=== PATIENT | female | born 1960 | race Caucasian/White ===

== ENCOUNTER → 2020-02-11 11:28 | Outpatient (CLI) | payer OTHER, SELFPAY ==
[2020-01-23 08:26] VITALS: BMI 19.5
--- NOTE | 2020-02-11 11:29 | BI_ITS ---
MAMMOGRAPHY - BILATERAL SCREENING REASON FOR EXAM: Female, 59 years old. Routine annual screening examination. PERTINENT HISTORY: Non-contributory. TECHNIQUE: Digital bilateral breast rosa (3D mammographic acquisition) in the CC and MLO projections. 2-D mediolateral oblique (MLO) and craniocaudad (CC) views of both breasts were obtained. CAD: Full Field Digital Mammography with Computer Added Detection was performed. COMPARISON: Comparison is made with prior outside examination dated December 09, 2018. FINDINGS: Breast Composition: The breasts are heterogeneously dense, which may obscure small masses. There are no dominant masses or suspicious calcifications. No other significant abnormalities are identified. There has been no significant change since the prior study. BI/SCREEN MAMM (CAD) W/ROSA BILAT IMPRESSION: Stable bilateral screening mammogram. Yearly follow-up mammogram recommended. (A) ASSESSMENT CATEGORY: BIRADS Category 1: Negative. A letter regarding these results will be sent to the patient by the facility within 30 days. Approximately 10% of breast cancers are not detected by mammography. A normal mammogram should not delay biopsy of a clinically suspicious abnormality. [id number] Electronically Signed: Tre Reynolds, at 13:19 EDT , Service support ,
== END ==
PROVIDERS: PCP Internal Medicine; Referring Provider Internal Medicine; Visit Provider Internal Medicine
DX: Z12.31 Encounter for screening mammogram for malignant neoplasm of breast (principal)
CPT/HCPCS: 77063; 77067

== ENCOUNTER → 2020-05-28 10:52 | Outpatient (CLI) | payer OTHER, SELFPAY ==
[2020-05-28 09:44] VITALS: BMI 19.5
--- NOTE | 2020-05-28 10:54 | RAD_ITS ---
HISTORY: cervicalgia, headaches several months ADDITIONAL HISTORY: None provided. EXAMINATION/TECHNIQUE: XR Spine Cervical 4 or 5 Views Number of images including paperwork: 5 COMPARISON: None FINDINGS: VERTEBRAE: No acute fracture. VERTEBRAL ALIGNMENT: No traumatic subluxation. DISKS AND JOINTS: Moderate discogenic degenerative changes at C4-5 with mild to moderate bilateral foraminal stenosis, greater on the right. Facet arthropathy and uncovertebral degenerative changes. SOFT TISSUES: Unremarkable paraspinous soft tissues. RAD/Cerv Spine 4 or 5 Views IMPRESSION: 1. No acute findings. 2. Cervical spondylosis. at 0142 Reported and signed by: Jayna Kilgore MD Electronically Signed: Jayna Kilgore MD at 1:42 EDT Tel , Service support ,
== END ==
PROVIDERS: PCP Internal Medicine; Referring Provider Nurse Practitioner Family; Visit Provider Nurse Practitioner Family
DX: M54.2 Cervicalgia (principal); R51 Headache
CPT/HCPCS: 72050

== ENCOUNTER → 2021-02-09 08:54 | Outpatient (CLI) | payer OTHER, SELFPAY ==
[2021-02-09 08:27] VITALS: BMI 19.8
[2021-02-09 12:10] LABS: Absolute Lymphocyte Count 1.45 X10^3/uL (0.83-4.51); Absolute Neutrophil Count 1.9 X10^3/uL (2.0-7.7); Basophil# 0.05 X10^3/uL; Basophil% 1.2 % (0-1); Eosinophil# 0.29 X10^3/uL; Hematocrit 40.4 % (37-47); Hemoglobin 13.5 g/dL (12.0-15.0); Lymphocyte # 1.45 X10^3/ul (0.83-4.51); Lymphocyte % 35.1 % (19-41); Mean Corp Hgb Conc 33.4 g/dL (32-36); Mean Corpuscular Hgb 33.9 pg (27.0-32.0); Mean Corpuscular Volume 101.5 fL (81-99); Mean Platelet Vol. 10.6 fl (6.2-12.0); Monocyte# 0.48 X10^3/uL; Monocyte% 11.6 % (0-10); NRBC Flagged by Analyzer 0 % (0-5); Neutrophil # 1.85 X10^3/uL (2.7-7.7); Neutrophil % 44.9 % (47-70); Platelet Count 250 K/mm3 (150-450); RBC Distribution Width CV 11.9 % (11.6-14.6); RBC Distribution Width SD 44.7 fl (35.1-43.9); Red Blood Count 3.98 M/mm3 (4.2-5.4); White Blood Count 4.1 K/mm3 (4.4-11.0)
[2021-02-09 12:59] LABS: ALB/GLOB Ratio 1.4 RATIO (0.9-2.4); AST(SGOT) 19 U/L (15-37); Alanine Aminotransfer ALT/SGPT 27 U/L (13-56); Albumin, Serum 4.2 g/dL (3.2-5.0); Alkaline Phosphatase 59 U/L (45-117); Anion Gap 6 (5-15); BUN 14 mg/dL (7-18); BUN/Creat Ratio 15.3 RATIO (10-20); Calcium,Total 9.2 mg/dL (8.5-10.1); Chloride 103 mmol/L (98-107); Creatinine, Serum 0.91 mg/dL (0.55-1.02); EST Glomerular Filtration Rate 67 mL/min (>60); Est Glom Filt Rate - Afr Amer 81 mL/min (>60); Globulin 3.1 g/dL (2.2-4.2); Glucose 88 mg/dL (74-106); Magnesium 2.4 mg/dL (1.6-2.6); Potassium 3.8 mmol/L (3.5-5.1); Protein, Total 7.3 g/dL (6.4-8.2); Sodium Level 138 mmol/L (136-145)
[2021-02-10 12:07] LABS: Vitamin B12 454 pg/mL (211-911)
== END ==
PROVIDERS: PCP Internal Medicine; Referring Provider Nurse Practitioner Family; Visit Provider Nurse Practitioner Family
DX: R00.2 Palpitations (principal); D53.9 Nutritional anemia, unspecified
CPT/HCPCS: 36415; 80053; 82607; 82746; 83735; 84443; 85025

== ENCOUNTER → 2021-04-21 | Outpatient (CLI) | payer OTHER, SELFPAY ==
[2021-04-21 15:01] VITALS: BMI 19.8
[2021-04-21 15:30] LABS: Bacteria 0 SEEN /hpf (None Seen); Mucous, Urine 0 SEEN /hpf (<or=2+); Red Blood Cells-Urine 0 SEEN /hpf (0-5); Squamous Epithelial Cells - UA 0 SEEN /hpf (5-10); White Blood Cells 0 SEEN /hpf (0-5)
[2021-04-21 16:36] LABS: Color, Urine Yellow (Yellow); Glucose, Dipstick Normal (Normal); Ketone-Dipstick Negative (Negative); Leukocyte Esterase-Dipstick Negative /ul (Negative); Nitrite-Dipstick Negative (Negative); Occult Blood-Urine Negative /ul (Negative); Protein-Dipstick Negative (Negative); Urine Bilirubin Dipstick Negative (Negative); Urine Clarity Clear (Clear); Urine Urobilinogen Normal (Normal); Urine pH 6.5 (5.0 - 8.0)
== END | disposition home or self-care (01) ==
LOC: LABSPEC 15:29
PROVIDERS: PCP Internal Medicine; Referring Provider Physician Assistant; Visit Provider Physician Assistant
DX: R31.9 Hematuria, unspecified (principal)
CPT/HCPCS: 81001; 87086

== ENCOUNTER → 2021-04-26 | Outpatient (CLI) | payer OTHER, SELFPAY ==
[2021-04-21 15:01] VITALS: BMI 19.8
--- NOTE | 2021-04-26 | CYSPIN_PTH ---
PATIENT: HENNY BROTHERS LOC: [facility] U#:[id number] AGE/SX: 60/F ROOM: RE04/26/[address]: Dr. Denisse Shaikh MD : 1960 BED: DIS: 04/26/2021 SPEC #: [id number] RECD: 04/26/21 14:00 STATUS: LEONARDO REJaron #: [id number] AIDEE: 04/26/21 00:[address]: Denisse Shaikh DEPT: CYTOLOGY RECD BY: Surinder Travis ENTERED: 04/27/21 11:04 SP TYPE: CYSPIN FL OTHR DR: Dr. Miri Ribeiro MD Tissues: Urine Procedures: Pap Stain (control) Special Stain Group II Cytospin Fluid HEADER OPERATION: Not noted PRE-OP DIAGNOSIS: Gross hematuria TISSUE SUBMITTED: Urine for cytology DIAGNOSIS CYTOLOGY Urine for cytology (cytospin): Negative for malignant cells. AM:pauline 04/27/2021 CYTOLOGY STUDY Slides are reviewed. CYTOLOGY GROSS Received is 60 ml of hazy yellow fluid labeled with the patient's name and and designated per the requisition as urine. Submitted for cytology preparation. / pauline 04/27/2021 TC:5 CPT: 43838
[2021-04-26 17:03] LABS: Cytology, Body Fluid / CSF SEE PATHOLOGY REPORT
== END | disposition home or self-care (01) ==
LOC: LABSPEC 15:35
PROVIDERS: PCP Internal Medicine; Visit Provider Urology
DX: R31.0 Gross hematuria (principal)
CPT/HCPCS: 88108; 88313

== ENCOUNTER → 2021-04-28 11:06 | Outpatient (CLI) | payer OTHER, SELFPAY ==
[2021-04-21 15:01] VITALS: BMI 19.8
[2021-04-28 12:14] LABS: Anion Gap 6 (5-15); BUN 12 mg/dL (7-18); Calcium,Total 9.6 mg/dL (8.5-10.1); Chloride 103 mmol/L (98-107); EST Glomerular Filtration Rate 78 mL/min (>60); Est Glom Filt Rate - Afr Amer 94 mL/min (>60); Glucose 93 mg/dL (74-106); Potassium 4.1 mmol/L (3.5-5.1); Sodium Level 141 mmol/L (136-145)
== END ==
PROVIDERS: PCP Internal Medicine; Referring Provider Internal Medicine; Visit Provider Internal Medicine
DX: E87.6 Hypokalemia (principal)
CPT/HCPCS: 36415; 80048

== ENCOUNTER → 2021-05-05 14:22 | Outpatient (CLI) | payer OTHER, SELFPAY ==
[2021-04-21 15:01] VITALS: BMI 19.8
--- NOTE | 2021-05-05 14:25 | CT_ITS ---
STUDY: CT ABDOMEN AND PELVIS WITH AND WITHOUT CONTRAST REASON FOR EXAM: Female, 60 years old. GROSS HEMATURIA RADIATION DOSAGE (If Supplied By Facility): CTDIvol = ( 8.57 ) mGy, DLP = ( 1166.01 ) mGycm TECHNIQUE: Transaxial images were obtained from the dome of the diaphragm to the symphysis pubis without oral contrast. IV 100mL Isovue-300 was administered. Sagittal and coronal images were reconstructed. Individualized dose optimization techniques were used for this CT. COMPARISON: None. FINDINGS: The visualized lung bases are unremarkable. The visualized portions of the heart are within normal limits. Normal liver. Normal gallbladder and extrahepatic biliary system. Normal spleen. Normal pancreas. Normal bilateral adrenal glands. Normal right kidney. Normal left kidney. Normal visualized stomach. Normal small intestine. Normal colon. The appendix is visualized and appears normal. Normal abdominal aorta. Normal inferior vena cava. Normal retroperitoneum. Normal urinary bladder. There is a 2.4 cm lipoma in the superior aspect of the left sartorius muscle. There are mild degenerative changes of the visualized lumbar spine. Straightening of the normal lumbar lordosis. CT/CT Abd/Pelvis W/WO Contrast IMPRESSION: No acute abnormality is seen. Electronically Signed: Tre Reynolds MD at 15:16 EDT , Service support ,
== END ==
PROVIDERS: PCP Internal Medicine; Referring Provider Urology; Visit Provider Urology
DX: R31.0 Gross hematuria (principal)
CPT/HCPCS: 74178; Q9967

== ENCOUNTER → 2021-06-27 15:05 | Outpatient (CLI) | payer OTHER, SELFPAY ==
[2021-06-27 17:02] LABS: Anion Gap 3 (5-15); BUN 17 mg/dL (7-18); BUN/Creat Ratio 23.3 RATIO (10-20); Calcium,Total 9.3 mg/dL (8.5-10.1); Chloride 104 mmol/L (98-107); Creatinine, Serum 0.73 mg/dL (0.55-1.02); EST Glomerular Filtration Rate 87 mL/min (>60); Est Glom Filt Rate - Afr Amer 105 mL/min (>60); Glucose 120 mg/dL (74-106); Potassium 3.8 mmol/L (3.5-5.1); Sodium Level 140 mmol/L (136-145)
== END ==
PROVIDERS: PCP Internal Medicine; Visit Provider Internal Medicine
DX: E87.6 Hypokalemia (principal)
CPT/HCPCS: 36415; 80048

== ENCOUNTER → 2021-07-12 | Outpatient (CLI) | payer OTHER, SELFPAY ==
[2021-07-18 12:32] LABS: HPV APTIMA, High Risk Negative (Negative)
== END | disposition home or self-care (01) ==
LOC: LABSPEC 15:15
PROVIDERS: PCP Internal Medicine; Visit Provider Nurse Practitioner Women's Health
DX: Z12.4 Encounter for screening for malignant neoplasm of cervix (principal); Z78.0 Asymptomatic menopausal state
CPT/HCPCS: 87624; 88175; G0145

== ENCOUNTER 2021-08-08 06:20 | Day surgery (SDC) | payer OTHER, SELFPAY ==
[2021-08-08] VITALS (7 sets, daily range): BP systolic 94–144; BP diastolic 59–88; PULSE 64–70; RESP 14–16; TEMP 36.2–36.3; O2SAT 97–100; BMI 20.2
--- NOTE | 2021-08-08 | IMM_PTH ---
PATIENT: HENNY BROTHERS LOC: [facility] U#:[id number] AGE/SX: 61/F ROOM: RE08/08/[address]: Dr. Adalberto Penn DO : 1960 BED: DIS: 08/08/2021 SPEC #: [id number] RECD: 08/09/21 14:29 STATUS: LEONARDO REQ #: [id number] AIDEE: 08/08/21 00:[address]: Adalberto Penn DEPT: IMMUNOHISTOCHEMISTRY RECD BY: Olesya Cook ENTERED: 08/09/21 14:31 SP TYPE: IMMUNO OTHR DR: Dr. Miri Ribeiro MD Tissues: B - Stomach, NOS C - Esophagus, NOS Procedures: H Pylori (initial) P53 (initial) KI-67 (add) PHYSICIAN & INSTITUTION [place] [id number] SPECIMEN INFORMATION: Tissue Source: B ? Gastric body biopsy, C ? Random esophagus biopsy Clinical Info: Macrocytic anemia, bloating Specimen Number: [id number] B & C CPT code: 31655 x2, 99390 x1 METHODOLOGY: Deparaffinized sections of prefer/formalin-fixed tissue or PAP/DQ stained slides are incubated with monoclonal/polyclonal antibodies/oligonucleotide probes. Localization is made via biotin free immunoperoxidase method. Appropriate controls are performed and reacted as expected. Results on target cell population are indicated in the following table: RESULTS: ANTIBODY / CLONE RESULT Block B H Pylori (polyclonal) negative Block C P53 (DO-7) negative Ki-67 (30-9) positive, very low These tests were developed and their performance characteristics determined by [facility]. They may not have been cleared or approved by the U.S. Food and Drug Administration. The FDA has determined that such clearance or approval is not necessary. The above immunohistochemical/dualISH markers are ordered and reviewed by the Pathologist. INTERPRETATION: B. Duodenum, biopsy: Negative for Helicobacter pylori organisms. C. Esophagus, random biopsy: Negative for dysplasia SJ:cherelle
--- NOTE | 2021-08-08 | EGD_PTH ---
PATIENT: HENNY BROTHERS LOC: [facility] U#:[id number] AGE/SX: 61/F ROOM: RE08/08/[address]: Dr. Adalberto Penn DO : 1960 BED: DIS: 08/08/2021 SPEC #: [id number] RECD: 08/08/21 12:36 STATUS: LEONARDO LUCILAJaron #: [id number] AIDEE: 08/08/21 00:[address]: Adalberto Penn DEPT: SURGICAL PATHOLOGY RECD BY: Dileep Lutz ENTERED: 08/08/21 12:37 SP TYPE: EGD BIOPSY OT DR: Dr. Miri Ribeiro MD Tissues: A - Duodenum, NOS B - Gastric mucous membrane C - Esophageal mucous membrane Procedures: Special Stain Group II Surgery Specimen Level IV Alcian Blue/PAS (control) HEADER OPERATION: EGD ([facility]) PRE-OP DIAGNOSIS: Macrocytic anemia, bloating TISSUE SUBMITTED: A ? Duodenum biopsy, B ? Gastric body biopsy, C ? Random esophagus biopsy MICROSCOPIC DIAGNOSIS A. Duodenum, biopsy: Fragments of small intestinal mucosa with mild congestion. B. Gastric body, biopsy: Mild gastritis. See microscopic description and comment. C. 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 Mild chronic inflammation. See comment. SJ:pauline 08/09/2021 COMMENT B. The results of immunohistochemistry for Helicobacter pylori will be reported separately ([id number]). C. The specimen predominantly consists of squamous epithelium. Immunohistochemistry ([id number]) for P53 and Ki-67 will be performed and results will be reported separately. Alcian blue/PAS stain with matched control is used in the evaluation of the specimen. MICROSCOPIC DESCRIPTION Slides are reviewed. B. The specimen shows fragments of gastric mucosa with chronic inflammatory cell infiltrates in the lamina propria consisting of lymphocytes and plasma cells, consistent with mild chronic gastritis. Focal mucosal congestion and hemorrhage are also noted. GROSS DESCRIPTION A - Received in fixative is one container labeled with the patient's name and designated duodenum biopsy. The specimen consists of multiple irregular fragments of light davalos soft tissue that in aggregate measure 1.2 x 0.3 x 0.1 cm. The specimen is totally submitted in one cassette. B - Received in fixative is one container labeled with the patient's name and designated gastric body biopsy. The specimen consists of multiple irregular fragments of light davalos soft tissue that in aggregate measure 1.5 x 0.6 x 0.1 cm. The specimen is totally submitted in one cassette. C - Received in fixative is one container labeled with the patient's name and designated random esophagus biopsy. The specimen consists of multiple irregular fragments of light davalos soft tissue that in aggregate measure 0.5 x 0.5 x 0.1 cm. The specimen is totally submitted in one cassette. / SJ:rg 08/08/21 TC:3 CPT: 69392 x3, 79745
[2021-08-08] MEDS: Lactated Ringers 1,000 ML 15 ML IV (06:30)
--- NOTE | 2021-08-08 07:24 | HP.PCM_ITS ---
History and Physical Date of Admission: 08/08/21 Chief Complaint: Follow-up chronic conditions Details: HENNY BROTHERS, is a 60 F who presents to the office today for the evaluation bloating, discomfort midepigastric, eating causes symptoms to occur. She does not get any heartburn. She was getting some chest pain or shortness of breath which that was attributed to anxiety from the of her mother. She had a cardiac work-up and it was subsequently negative. There are some things that she has identified as an issue, but foods that are bland that cause issues also. Onset four years prior with EGD performed at that time. omeprazole, lansoprazole have been attempted with no effect. In the last couple of months midepigastric pain has been worse. Stress level has been very high related to family issues of loss of mother and worrying about her father. EGD showed mild irritation in her stomach. Colonoscopy performed beginning of last year with normal results. ROS ENT ENT: Positive for nasal congestion Gastro GI: Positive for bloating and heartburn Musc Musculoskeletal: Positive for joint swelling Psych Psychiatric: Positive for anxiety Exam Const General: cooperative and comfortable Nutritional Appearance: average body habitus and well nourished [facility] Head: normal to inspection Ears: hearing grossly normal bilaterally Nose: external nose normal Face and sinus: normal facial exam Mouth: oral mucosae normal Throat: posterior oropharynx normal Eyes General: appearance normal, both eyes and all related structures Neck Neck: normal visual inspection Chest Chest palpation & inspection: normal inspection of the chest and normal palpation of entire chest wall Resp Effort & Inspection: normal respiratory effort Auscultation: Bilateral: Clear to Auscultation Cardio Palpation: normal PMI Rate: regular rate Rhythm: regular rhythm GI Inspection: normal to inspection Auscultation: normal bowel sounds Percussion: normal to percussion Palpation: no hepatosplenomegaly Skin General: no rashes or lesions noted Neuro General: patient alert Extrem General: normal to inspection Psych Affect: normal affect Quality Reporting Tobacco Screening (CMS 138) Smoking Status: Never smoker Assessment and Plan Assessment and Plan (1) Bloating: Status: Acute Plan - Dr. Glover Friend, DO: I suspect that her bloating is a functional problem. I looked at her CAT scan that she has no any abnormalities. We will a very collapsed stomach that had a very long lesser curvature. The significance of this I do not know at this time. I will evaluate with upper endoscopy. Went over extensively the causes bloating besides peptic ulcer disease, celiac disease or atypical GERD. This will be bacterial overgrowth resulting in gas and bloating. We also went over CT scan and showed constipation even though she was in the bathroom on a daily basis. She does not take any stool softeners or bulking agents. (2) Macrocytic anemia: Status: Acute Plan - Dr. Glover Friend, DO: Her TSH was normal. I would recommend checking B12 and folate acid level. The reason for an elevated MCV in her case would be drug-induced macrocytosis. I do not see any medicines that would be associated with that diagnosis that she takes on a daily basis. Liver disease involvement on red blood cell, mild dysplastic syndrome. I would recheck a CBC with differential. To make sure is not secondary to clumping platelets. I have re-examined the patient. There are no clinical changes since date of exam.
--- NOTE | 2021-08-08 08:00 | OP.EGD_ITS ---
Patient Name: Marcia Cade Procedure Date: 08/08/2021 7:37 AM Date of : 1960 Age: 61 Procedure: Upper GI endoscopy Indications: Epigastric abdominal pain Providers: Adalberto Penn DO Medicines: See the Anesthesia note for documentation of the administered medications Patient Profile: This is a 61 year old female. Refer to note in patient chart for documentation of history and physical. Patient has symptoms of acute abdominal distention. Complications: No immediate complications. Procedure: Pre-Anesthesia Assessment: - Prior to the procedure, a History and Physical was performed, and patient medications and allergies were reviewed. The patient is competent. The risks and benefits of the procedure and the sedation options and risks were discussed with the patient. All questions were answered and informed consent was obtained. Patient identification and proposed procedure were verified by the physician in the pre-procedure area. Mental Status Examination: alert and oriented. Airway Examination: normal oropharyngeal airway and neck mobility. Respiratory Examination: clear to auscultation. CV Examination: normal. Prophylactic Antibiotics: The patient does not require prophylactic antibiotics. Prior Anticoagulants: The patient has taken no previous anticoagulant or antiplatelet agents. ASA Grade Assessment: II - A patient with mild systemic disease. After reviewing the risks and benefits, the patient was deemed in satisfactory condition to undergo the procedure. The anesthesia plan was to use moderate sedation / analgesia (conscious sedation). Immediately prior to administration of medications, the patient was re-assessed for adequacy to receive sedatives. The heart rate, respiratory rate, oxygen saturations, blood pressure, adequacy of pulmonary ventilation, and response to care were monitored throughout the procedure. The physical status of the patient was re-assessed after the procedure. After obtaining informed consent, the endoscope was passed under direct vision. Throughout the procedure, the patient's blood pressure, pulse, and oxygen saturations were monitored continuously. The Endoscope was introduced through the mouth, and advanced to the second part of duodenum. The upper GI endoscopy was accomplished without difficulty. The patient tolerated the procedure well. Moderate Sedation: Moderate (conscious) sedation was administered by the endoscopy nurse and supervised by the endoscopist. The patient's oxygen saturation, heart rate, blood pressure and response to care were monitored. Total physician intraservice time was 15 minutes. Scope In: 7:47:50 AM Scope Out: 7:54:52 AM Total Procedure Duration Time 0 hours 7 minutes 2 seconds Findings: LA Grade A (one or more mucosal breaks less than 5 mm, not extending between tops of 2 mucosal folds) esophagitis with no bleeding was found 34 to 35 cm from the incisors. Biopsies were taken with a cold forceps for histology. Verification of patient identification for the specimen was done. Estimated blood loss was minimal. Scattered mild inflammation characterized by congestion (edema) was found in the stomach. Biopsies were taken with a cold forceps for histology. Verification of patient identification for the specimen was done. Estimated blood loss was minimal. The second portion of the duodenum was normal. Biopsies were taken with a cold forceps for histology. Verification of patient identification for the specimen was done. Estimated blood loss was minimal. Impression: - LA Grade A non-reflux esophagitis. Biopsied. - Bile gastritis. Biopsied. - Normal second portion of the duodenum. Biopsied. Recommendation: - Discharge patient to home. - Resume previous diet. - Continue present medications. - Await pathology results. - Return to my office in 2 weeks. Procedure Code(s): --- Professional --- 79315, Esophagogastroduodenoscopy, flexible, transoral; with biopsy, single or multiple G0500, Moderate sedation services provided by the same physician or other qualified health customer care coordinator performing a gastrointestinal endoscopic service that sedation supports, requiring the presence of an independent trained observer to assist in the monitoring of the patient's level of consciousness and physiological status; initial 15 minutes of intra-service time; patient age 5 years or older (additional time may be reported with 70248, as appropriate) CPT copyright 2017 [employer]. All rights reserved. The codes documented in this report are preliminary and upon switchboard operator receptionist review may be revised to meet current compliance requirements. Adalberto Penn DO 08/08/2021 8:00:05 AM This report has been signed electronically. Number of Addenda: 1 Note Initiated On: 08/08/2021 7:37 AM Addendum Number: 1 Addendum Date: 05/19/2022 6:31:07 AM MAC was used instead of moderate sedation for this patient. Adalberto Penn DO 05/19/2022 6:31:12 AM This report has been signed electronically.
--- NOTE | 2021-08-08 08:01 | OP.CCLET_ITS ---
05/19/2022 Miri Ribeiro MD [address] [place] [address] Re : Upper GI endoscopy procedure for Marcia Cade Dear Dr. Ribeiro This procedure was performed on Sunday, August 08, 2021. My impressions and recommendations are as follows: Impressions : - LA Grade A non-reflux esophagitis. Biopsied. - Bile gastritis. Biopsied. - Normal second portion of the duodenum. Biopsied. Recommendations : - Discharge patient to home. - Resume previous diet. - Continue present medications. - Await pathology results. - Return to my office in 2 weeks. My findings are described in the full procedure note, which is enclosed. If I can be of further assistance, please feel free to contact me at . Sincerely, Adalberto Penn, 08/08/2021 8:00:05 AM This report has been signed electronically.
== END 2021-08-08 08:51 | disposition home or self-care (01) ==
LOC: EN 06:21 → AC 06:21
PROVIDERS: PCP Internal Medicine; Referring Provider Internal Medicine; Visit Provider Internal Medicine Gastroenterology
PROC: 0DJ08ZZ Inspection of Upper Intestinal Tract, Via Natural or Artificial Opening Endoscopic (ICD-10-PCS; CPT 43235; principal; 2021-08-08 07:25)
DX: K20.90 Esophagitis, unspecified without bleeding (principal); K22.70 Barrett's esophagus without dysplasia; K29.70 Gastritis, unspecified, without bleeding; D53.9 Nutritional anemia, unspecified; R10.13 Epigastric pain; R14.0 Abdominal distension (gaseous); E87.6 Hypokalemia; M19.90 Unspecified osteoarthritis, unspecified site; F41.1 Generalized anxiety disorder; Z63.4 Disappearance and death of family member; Z79.899 Other long term (current) drug therapy
CPT/HCPCS: 43239; 88305; 88313; 88341; 88342; J7120; J2405

== ENCOUNTER 2021-10-24 13:27 | Outpatient (CLI) | payer OTHER, SELFPAY ==
[2021-10-24 14:55] LABS: Absolute Lymphocyte Count 2.14 X10^3/uL (0.83-4.51); Absolute Neutrophil Count 2.4 X10^3/uL (2.0-7.7); Basophil# 0.05 X10^3/uL; Basophil% 0.9 % (0-1); Eosinophil# 0.32 X10^3/uL; Hematocrit 38.1 % (37-47); Hemoglobin 12.6 g/dL (12.0-15.0); Lymphocyte # 2.14 X10^3/ul (0.83-4.51); Lymphocyte % 40.1 % (19-41); Mean Corp Hgb Conc 33.1 g/dL (32-36); Mean Corpuscular Hgb 33.7 pg (27.0-32.0); Mean Corpuscular Volume 101.9 fL (81-99); Mean Platelet Vol. 10.3 fl (6.2-12.0); Monocyte# 0.45 X10^3/uL; Monocyte% 8.4 % (0-10); NRBC Flagged by Analyzer 0 % (0-5); Neutrophil # 2.37 X10^3/uL (2.7-7.7); Neutrophil % 44.4 % (47-70); Platelet Count 214 K/mm3 (150-450); RBC Distribution Width CV 12.2 % (11.6-14.6); RBC Distribution Width SD 45.9 fl (35.1-43.9); Red Blood Count 3.74 M/mm3 (4.2-5.4); White Blood Count 5.3 K/mm3 (4.4-11.0)
[2021-10-24 15:34] LABS: ALB/GLOB Ratio 1.4 RATIO (0.9-2.4); AST(SGOT) 14 U/L (15-37); Alanine Aminotransfer ALT/SGPT 24 U/L (13-56); Albumin, Serum 4.1 g/dL (3.2-5.0); Alkaline Phosphatase 60 U/L (45-117); Anion Gap 5 (5-15); BUN 17 mg/dL (7-18); Calcium,Total 9.2 mg/dL (8.5-10.1); Chloride 106 mmol/L (98-107); Creatinine, Serum 1.13 mg/dL (0.55-1.02); EST Glomerular Filtration Rate 52 mL/min (>60); Est Glom Filt Rate - Afr Amer 63 mL/min (>60); Glucose 102 mg/dL (74-106); Potassium 4.1 mmol/L (3.5-5.1); Protein, Total 7.1 g/dL (6.4-8.2); Sodium Level 140 mmol/L (136-145); Thyroid Stim Hormone (TSH) 2.25 uIU/mL (0.358-3.74)
== END 2021-10-24 23:59 | disposition home or self-care (01) ==
LOC: BIMLAB 13:27
PROVIDERS: PCP Internal Medicine; Referring Provider Internal Medicine; Visit Provider Internal Medicine
DX: F41.1 Generalized anxiety disorder (principal); D75.89 Other specified diseases of blood and blood-forming organs
CPT/HCPCS: 36415; 80053; 82746; 84443; 85025

== ENCOUNTER 2021-10-25 11:41 | Outpatient (CLI) | payer OTHER, SELFPAY ==
[2021-10-25 12:47] LABS: Vitamin B12 546 pg/mL (211-911)
== END 2021-10-25 23:59 | disposition home or self-care (01) ==
LOC: BIMLAB 11:42
PROVIDERS: PCP Internal Medicine; Referring Provider Internal Medicine; Visit Provider Internal Medicine
DX: D75.89 Other specified diseases of blood and blood-forming organs (principal)
CPT/HCPCS: 36415; 82607

== ENCOUNTER → 2022-01-04 | Outpatient (CLI) | payer OTHER, SELFPAY ==
--- NOTE | 2022-01-04 10:51 | NM_ITS ---
INDICATION: nausea, bloating, early satiety EXAMINATION: NUCLEAR MEDICINE GASTRIC EMPTYING - NM Gastric Emptying Study (solid, liquid or both) TECHNIQUE: Radiopharmaceutical (solid portion of the exam): 1 mCi of Tc99m Sulfur Colloid mixed with oat meal. Oral administration. Imaging: Radiopharmaceutical (liquid portion of the exam): 1 mCi of Tc99m Sulfur Colloid mixed with orange juice. Oral administration. Imaging: COMPARISON: None. FINDINGS: Gastric emptying time with solids: 60 minutes, within normal limits. Gastric emptying time with liquids: 60 minutes, within normal limits. NM/Gastric Emptying Study IMPRESSION: Normal gastric emptying time with liquids and solids. Electronically Signed: Luis Felipe Hurley MD at 0:08 EDT ,
== END | disposition home or self-care (01) ==
LOC: NM 10:51
PROVIDERS: PCP Internal Medicine; Visit Provider Internal Medicine Gastroenterology
DX: R11.0 Nausea (principal)
CPT/HCPCS: 78264; A9541

== ENCOUNTER → 2022-03-08 | Outpatient (CLI) | payer OTHER, SELFPAY ==
[2022-03-08 12:22] LABS: Anion Gap 7 (5-15); BUN 13 mg/dL (7-18); BUN/Creat Ratio 17.4 RATIO (10-20); Calcium,Total 9.1 mg/dL (8.5-10.1); Chloride 104 mmol/L (98-107); Creatinine, Serum 0.74 mg/dL (0.55-1.02); EST Glomerular Filtration Rate 85 mL/min (>60); Est Glom Filt Rate - Afr Amer 102 mL/min (>60); Glucose 95 mg/dL (74-106); Sodium Level 141 mmol/L (136-145)
== END | disposition home or self-care (01) ==
LOC: BIMLAB 10:09
PROVIDERS: PCP Internal Medicine; Visit Provider Internal Medicine
DX: E87.6 Hypokalemia (principal)
CPT/HCPCS: 36415; 80048

== ENCOUNTER → 2022-09-07 | Outpatient (CLI) | payer OTHER, SELFPAY ==
[2022-09-07 17:09] LABS: Absolute Lymphocyte Count 1.66 X10^3/uL (0.83-4.51); Absolute Neutrophil Count 2.4 X10^3/uL (2.0-7.7); Basophil# 0.04 X10^3/uL; Basophil% 0.8 % (0-1); Eosinophil# 0.33 X10^3/uL; Eosinophils% 6.8 % (0-5); Hemoglobin 12.7 g/dL (12.0-15.0); Lymphocyte # 1.66 X10^3/ul (0.83-4.51); Mean Corp Hgb Conc 32.6 g/dL (32-36); Mean Corpuscular Hgb 33.8 pg (27.0-32.0); Mean Corpuscular Volume 103.7 fL (81-99); Mean Platelet Vol. 10.6 fl (6.2-12.0); Monocyte% 8.2 % (0-10); NRBC Flagged by Analyzer 0.6 % (0-5); Neutrophil # 2.44 X10^3/uL (2.7-7.7); Platelet Count 225 K/mm3 (150-450); RBC Distribution Width CV 11.6 % (11.6-14.6); RBC Distribution Width SD 44.2 fl (35.1-43.9); Red Blood Count 3.76 M/mm3 (4.2-5.4); White Blood Count 4.9 K/mm3 (4.4-11.0)
[2022-09-07 17:13] LABS: ALB/GLOB Ratio 1.4 RATIO (0.9-2.4); AST(SGOT) 11 U/L (15-37); Alanine Aminotransfer ALT/SGPT 25 U/L (13-56); Alkaline Phosphatase 63 U/L (45-117); Anion Gap 7 (5-15); BUN 19 mg/dL (7-18); BUN/Creat Ratio 24.7 RATIO (10-20); Calcium,Total 9.1 mg/dL (8.5-10.1); Chloride 104 mmol/L (98-107); Cholesterol 205 mg/dL (200); Creatinine, Serum 0.77 mg/dL (0.55-1.02); EST Glomerular Filtration Rate 82 mL/min (>60); Est Glom Filt Rate - Afr Amer 99 mL/min (>60); Globulin 2.8 g/dL (2.2-4.2); Glucose 108 mg/dL (74-106); High Density Lipoprotein 75 mg/dL; Potassium 3.6 mmol/L (3.5-5.1); Protein, Total 6.8 g/dL (6.4-8.2); Sodium Level 141 mmol/L (136-145); Triglycerides 260 mg/dL; Very Low Density Lipoprotein 52 mg/dL (5-40)
[2022-09-07 17:15] LABS: Vitamin D,25 Hydroxy 32.9 ng/mL
== END | disposition home or self-care (01) ==
LOC: BIMLAB 14:41
PROVIDERS: PCP Internal Medicine; Referring Provider Internal Medicine; Visit Provider Internal Medicine
DX: Z00.00 Encounter for general adult medical examination without abnormal findings (principal); Z13.21 Encounter for screening for nutritional disorder; E87.6 Hypokalemia; F41.1 Generalized anxiety disorder
CPT/HCPCS: 36415; 80053; 80061; 82306; 85025

== ENCOUNTER → 2022-09-27 | Outpatient (CLI) | payer OTHER, SELFPAY ==
--- NOTE | 2022-09-27 10:47 | BD_ITS ---
STUDY: DUAL ENERGY X-RAY ABSORPTIOMETRY / DXA REASON FOR EXAM: Female, 62 years old. Post Menopausal TECHNIQUE: Bone Mineral Density (BMD) measurements of lumbar spine and bilateral hips were obtained. COMPARISON: None. FINDINGS: Lumbar Spine (L1-L4): g/cm2 (0.852) / T-score (-1.8) / Z-score (-0.4) Findings are suggestive of osteopenia with a moderate fracture risk. Left Femur Total: g/cm2 (0.845) / T-score (-0.8) / Z-score (0.2) Left Femoral Neck: g/cm2 (0.619) / T-score (-2.1) / Z-score (-0.8) Right Femur Total: g/cm2 (0.843) / T-score (-0.8) / Z-score (0.1) Right Femoral Neck: g/cm2 (0.670) / T-score (-1.6) / Z-score (-0.3) BD/Dexa Bone Density Study IMPRESSION: The patient is considered osteopenic as outlined below according to World Fernando Organization (WHO) criteria with a high fracture risk. Reference Information: The T-score is the number of standard deviations above or below the standard which is normal for young adults at their peak bone mineral density. The World Health Organization (WHO) interprets the T-scores as follows: Above -1 Normal bone density Between -1 and -2.5 Osteopenia Equal to / or below -2.5 Osteoporosis As a practical clinical guideline, osteopenia may be graded as follows: Mild -1 through -1.5 Moderate -1.6 through -2.0 Severe -2.1 through -2.4 The Z-score is the number of standard deviations above or below age-matched controls. A Z-score of less than -1.5 would be considered abnormal. References: 1. NIH Osteoporosis and Related Bone Diseases www osteo.org 2. International Society for Clinical Densitometry www iscd.org 3. National Osteoporosis Foundation www nof.org Electronically Signed: Tre Reynolds MD at 8:20 EST ,
== END | disposition home or self-care (01) ==
LOC: OPBD 10:38
PROVIDERS: PCP Internal Medicine; Visit Provider Internal Medicine
DX: Z13.820 Encounter for screening for osteoporosis (principal); Z78.0 Asymptomatic menopausal state
CPT/HCPCS: 77080

== ENCOUNTER → 2022-11-09 | Outpatient (CLI) | payer OTHER, SELFPAY ==
[2022-11-09 12:32] LABS: Anion Gap 5 (5-15); BUN 19 mg/dL (7-18); Chloride 103 mmol/L (98-107); EST Glomerular Filtration Rate 90 mL/min (>60); Est Glom Filt Rate - Afr Amer 109 mL/min (>60); Glucose 87 mg/dL (74-106); Potassium 4.2 mmol/L (3.5-5.1); Sodium Level 139 mmol/L (136-145)
== END | disposition home or self-care (01) ==
LOC: BIMLAB 09:02
PROVIDERS: PCP Internal Medicine; Referring Provider Internal Medicine; Visit Provider Internal Medicine
DX: E87.6 Hypokalemia (principal)
CPT/HCPCS: 36415; 80048

== ENCOUNTER → 2023-04-05 | Outpatient (CLI) | payer OTHER, SELFPAY ==
[2023-04-05 13:13] LABS: Anion Gap 4 (5-15); BUN 16 mg/dL (7-18); BUN/Creat Ratio 16.9 RATIO (10-20); Calcium,Total 9.1 mg/dL (8.5-10.1); Chloride 105 mmol/L (98-107); Creatinine, Serum 0.95 mg/dL (0.55-1.02); EST Glomerular Filtration Rate 64 mL/min (>60); Est Glom Filt Rate - Afr Amer 77 mL/min (>60); Glucose 85 mg/dL (74-106); Sodium Level 139 mmol/L (136-145)
== END | disposition home or self-care (01) ==
LOC: BIMLAB 08:03
PROVIDERS: PCP Internal Medicine; Referring Provider Internal Medicine; Visit Provider Internal Medicine
DX: M85.80 Other specified disorders of bone density and structure, unspecified site (principal); E55.9 Vitamin D deficiency, unspecified; E87.6 Hypokalemia
CPT/HCPCS: 36415; 80048; 82306

== ENCOUNTER 2023-08-07 12:19 | Day surgery (SDC) | payer OTHER, SELFPAY ==
--- NOTE | 2023-08-07 | IMM_PTH ---
PATIENT: HENNY BROTHERS LOC: [facility] U#:[id number] AGE/SX: 63/F ROOM: RE08/07/[address]: Dr. Adalberto Penn DO : 1960 BED: DIS: 08/07/2023 SPEC #: [id number] RECD: 08/10/23 12:42 STATUS: LEONARDO REQ #: [id number] AIDEE: 08/07/23 00:[address]: Adalberto Penn DEPT: IMMUNOHISTOCHEMISTRY RECD BY: Olesya Cook ENTERED: 08/10/23 12:43 SP TYPE: IMMUNO OTHR DR: Dr. Miri Ribeiro MD Tissues: Esophagus, NOS Procedures: P53 (initial) KI-67 (add) MOC-31 (add) PHYSICIAN & INSTITUTION [place] [address] SPECIMEN INFORMATION: Tissue Source: Distal esophagus Clinical Info: Bile acid esophageal reflux Specimen Number: [id number] CPT code: 10543, 95411 x2 METHODOLOGY: Deparaffinized sections of prefer/formalin-fixed tissue or PAP/DQ stained slides are incubated with monoclonal/polyclonal antibodies/oligonucleotide probes. Localization is made via biotin free immunoperoxidase method. Appropriate controls are performed and reacted as expected. Results on target cell population are indicated in the following table: RESULTS: ANTIBODY / CLONE RESULT P53 (DO-7) positive, wild type pattern Ki-67 (30-9) positive, low MOC-31 (4561) positive These tests were developed and their performance characteristics determined by [facility]. They may not have been cleared or approved by the U.S. Food and Drug Administration. The FDA has determined that such clearance or approval is not necessary. The above immunohistochemical/dualISH markers are ordered and reviewed by the Pathologist. INTERPRETATION: Distal esophagus, biopsy: No evidence of dysplasia. AM:pauline 08/13/2023
[2023-08-07 12:42] VITALS: BP 132/86; PULSE 87; RESP 16; TEMP 37; O2SAT 100; BMI 20.9
[2023-08-07] MEDS: Lactated Ringers 1,000 ML 15 ML IV (12:47)
--- NOTE | 2023-08-07 13:21 | PCM.HP.BLA ---
History and Physical Date of Admission: 08/07/23 62 F who presents to the office today for 3 month f/u bile gastritis due to a incompetent pyloric sphincter.?She had significant bile present in her stomach on EGD. Gastric emptying study was normal. PPI was discontinued since the diagnosis of Lopez's was in question--she had intestinal metaplasia on biopsy of esophagus, but esophagus appearance was more like bile acid reflux than like Lopez's. We had referred her to [facility] for possible ablation for Lopez's. She tried alkaline water and sodium bicarb w/o relief of bloating after eating and abdominal pain. Does best with small meals. Doesn't tolerate beef, processed tomatoes, broccoli, asparagus. If she consumes soluble fiber in the form of bran cereal, then that can help minimize the bile acid reflux. Bowels are regular on aloe vera supplement. Marcia established with this clinic 07.14.21. She was having difficulty with postprandial bloating and midepigastric discomfort for the last four years. EGD 08.08.21 finding LA Grade A non-reflux esophagitis; Lopez?s esophagus, Ki-67 +; bile gastritis. Gastric emptying study 01.04.22 normal at 60 minutes. ROS Const Constitutional: No fatigue ENT ENT: No difficulty swallowing Gastro GI: Positive for heartburn; No abdominal pain, belching, bloating, change in bowel habits, change in stool character, coffee ground emesis, constipation, cramping, diarrhea, difficulty swallowing, feeling full early, excessive flatus, incontinent of stools, Vomiting blood/hematemesis, Blood in stool, loose stools, Black,tarry stools, nausea/dyspepsia, pain with swallowing, vomiting or other Musc Musculoskeletal: No joint pain Skin Skin: No yellowing of the eye or itchy eyes Psych Psychiatric: No anxiety and No depression Endo Endocrine: No fatigue Aller/Imm Allergy/Immunologic: No itchy eyes Richardson/Lymp Hematologic/Lymphatic: No easy bleeding or easy bruising Exam Const General: cooperative and healthy appearing Nutritional Appearance: average body habitus Orientation: alert, awake and oriented x3 Quality Reporting Tobacco Screening ([facility] 138) Smoking Status: Never smoker Assessment and Plan Assessment and Plan (1) Bile acid esophageal reflux: Status: Acute Plan: 62-year-old female with bilateral gastroesophagitis due to incompetent pyloric sphincter. She minimizes bile acid reflux by consuming soluble fiber. Bowels are regular on aloe vera supplement. She has been interested in ablation for Lopez's esophagus so we referred her to [facility], however they felt she likely had changes due to bile acid reflux rather than true Lopez's esophagus; they recommended no PPI therapy, consider Alba pH study, consider gastric emptying study. We will need to reevaluate on EGD. I have examined the patient and the H&P has been reviewed. There are no clinical changes since date of exam.
--- NOTE | 2023-08-07 13:30 | ESO_PTH ---
PATIENT: HENNY BROTHERS LOC: EN U#:[id number] AGE/SX: 63/F ROOM: RE08/07/[address]: Dr. Adalberto Penn DO : 1960 BED: DIS: 08/07/2023 SPEC #: [id number] RECD: 08/08/23 09:25 STATUS: LEONARDO LB #: [id number] AIDEE: 08/07/23 13:[address]: Adalberto Penn DEPT: SURGICAL PATHOLOGY RECD BY: Janiya Noel ENTERED: 08/08/23 09:25 SP TYPE: STEPHON KINCAID DR: Dr. Miri Ribeiro MD Tissues: Esophagus, NOS Procedures: Special Stain Group II Surgery Specimen Level IV Alcian Blue/PAS (control) HEADER OPERATION: EGD with biopsy PRE-OP DIAGNOSIS: Bile acid esophageal reflux TISSUE SUBMITTED: Distal esophagus biopsy MICROSCOPIC DIAGNOSIS Distal esophagus, biopsy: Gastroesophageal junctional mucosa with mild chronic inflammation. Focal changes of reflux. Focal goblet cell metaplasia consistent with Lopez's esophagus. No evidence of dysplasia. AM:pauline 08/10/2023 COMMENT Alcian blue/PAS stain with matched control supports the above diagnosis. Immunohistochemistry ([id number]) for P53 and Ki-67 will be performed and results will be reported separately. MICROSCOPIC DESCRIPTION Slides are reviewed. GROSS DESCRIPTION Received in fixative is one container labeled with the patient's name and designated distal esophagus. The specimen consists of multiple irregular fragments of light davalos soft tissue that in aggregate measure 1.5 x 0.5 x 0.1 cm. The specimen is totally submitted in one cassette. / AM:pauline 08/08/2023 TC:3 CPT: 26649, 31039
[2023-08-07 13:43] VITALS: BP 112/73; BP 132/86; PULSE 82; RESP 16; TEMP 36.9; O2SAT 96
[2023-08-07 13:45] VITALS: BP 108/75; BP 132/86; PULSE 78; RESP 16; O2SAT 97
--- NOTE | 2023-08-07 13:48 | OP.EGD_ITS ---
Patient Name: Marcia Cade Procedure Date: 08/07/2023 1:16 PM Date of : 1960 Age: 63 Procedure: Upper GI endoscopy Indications: Follow-up of Lopez's esophagus Providers: Adalberto Penn DO Medicines: Monitored Anesthesia Care Patient Profile: This is a 63 year old female. Refer to note in patient chart for documentation of history and physical. Patient has symptoms of chronic heartburn. Complications: No immediate complications. Procedure: Pre-Anesthesia Assessment: - Prior to the procedure, a History and Physical was performed, and patient medications and allergies were reviewed. The patient is competent. The risks and benefits of the procedure and the sedation options and risks were discussed with the patient. All questions were answered and informed consent was obtained. Patient identification and proposed procedure were verified by the physician. Mental Status Examination: normal. Prophylactic Antibiotics: The patient does not require prophylactic antibiotics. Prior Anticoagulants: The patient has taken no anticoagulant or antiplatelet agents. After reviewing the risks and benefits, the patient was deemed in satisfactory condition to undergo the procedure. The anesthesia plan was to use monitored anesthesia care (MAC). Immediately prior to administration of medications, the patient was re-assessed for adequacy to receive sedatives. The heart rate, respiratory rate, oxygen saturations, blood pressure, adequacy of pulmonary ventilation, and response to care were monitored throughout the procedure. The physical status of the patient was re-assessed after the procedure. After obtaining informed consent, the endoscope was passed under direct vision. Throughout the procedure, the patient's blood pressure, pulse, and oxygen saturations were monitored continuously. The Endoscope was introduced through the mouth, and advanced to the second part of duodenum. The upper GI endoscopy was accomplished without difficulty. The patient tolerated the procedure well. Scope In: 1:32:28 PM Scope Out: 1:38:33 PM Total Procedure Duration Time 0 hours 6 minutes 5 seconds Findings: There were esophageal mucosal changes secondary to established short-segment Lopez's disease present in the lower third of the esophagus. The maximum longitudinal extent of these mucosal changes was 2 cm in length. Mucosa was biopsied with a cold forceps for histology in 4 quadrants at intervals of 1 cm in the lower third of the esophagus. One specimen bottle was sent to pathology. A small hiatal hernia was present. No other significant abnormalities were identified in a careful examination of the stomach. The second portion of the duodenum was normal. Impression: - Esophageal mucosal changes secondary to established short-segment Lopez's disease. Biopsied. - Small hiatal hernia. - Normal second portion of the duodenum. Recommendation: - Await pathology results. - Repeat upper endoscopy for surveillance. - Continue present medications. Procedure Code(s): --- Professional --- 35094, Esophagogastroduodenoscopy, flexible, transoral; with biopsy, single or multiple CPT copyright 2021 [employer]. All rights reserved. The codes documented in this report are preliminary and upon credit analysis manager review may be revised to meet current compliance requirements. Adalberto Penn DO 08/07/2023 1:48:17 PM This report has been signed electronically. Number of Addenda: 0 Note Initiated On: 08/07/2023 1:16 PM
--- NOTE | 2023-08-07 13:48 | OP.CCLET_ITS ---
08/07/2023 Miri Ribeiro MD [address] [place] [address] [place] [address] Re : Upper GI endoscopy procedure for Marcia Cade Dear Dr. Ribeiro This procedure was performed on Monday, August 07, 2023. My impressions and recommendations are as follows: Impressions : - Esophageal mucosal changes secondary to established short-segment Lopez's disease. Biopsied. - Small hiatal hernia. - Normal second portion of the duodenum. Recommendations : - Await pathology results. - Repeat upper endoscopy for surveillance. - Continue present medications. My findings are described in the full procedure note, which is enclosed. If I can be of further assistance, please feel free to contact me at . Sincerely, Adalberto Penn, 08/07/2023 1:48:17 PM This report has been signed electronically.
[2023-08-07 13:50] VITALS: BP 108/76; BP 132/86; PULSE 74; RESP 16; O2SAT 98
[2023-08-07 13:55] VITALS: BP 109/74; BP 132/86; PULSE 68; RESP 16; TEMP 37; O2SAT 98
[2023-08-07 14:06] VITALS: BP 132/86
== END 2023-08-07 14:20 | disposition home or self-care (01) ==
LOC: EN 12:20 → AC 12:22
PROVIDERS: PCP Internal Medicine; Referring Provider Internal Medicine; Visit Provider Internal Medicine Gastroenterology
PROC: 0DJ08ZZ Inspection of Upper Intestinal Tract, Via Natural or Artificial Opening Endoscopic (ICD-10-PCS; CPT 43235; principal; 2023-08-07 13:25)
DX: K22.70 Barrett's esophagus without dysplasia (principal); K44.9 Diaphragmatic hernia without obstruction or gangrene; K29.70 Gastritis, unspecified, without bleeding; K21.00 Gastro-esophageal reflux disease with esophagitis, without bleeding; E55.9 Vitamin D deficiency, unspecified; F41.1 Generalized anxiety disorder; Z79.899 Other long term (current) drug therapy
CPT/HCPCS: 43239; 81002; 88305; 88313; 88341; 88342; J7120; J2405

== ENCOUNTER → 2023-10-31 | Outpatient (CLI) | payer OTHER, SELFPAY ==
--- OUTSIDE RECORDS SUMMARY | 2023-10-31 08:27 | XMS RPT_ITS | CCD ---
Author Name Unknown Address [address] [place] [address] Organization [facility] Care Team Providers Care Security Associate Name Role Phone CAROLYNE LE MD Admitting Unavailable CAROLYNE LE MD Primary Care Unavailable CAROLYNE LE MD Consulting Unavailable CAROLYNE LE MD Attending Unavailable PROVIDER, UNKNOWN Consulting Unavailable CAROLYNE LE MD Consulting Unavailable CHARLOTTE MONTERO MD Admitting UnavailCHARLOTTE Fernández MD Primary Care UnavailCHARLOTTE Fernández MD Attending Unavailabl e PROVIDER, UNKNOWN Consulting Unavailable Fidelia Dunn APRN.CNP Primary Care Provider FIDELIA DUNN Primary Care Unavailable Allergies Allergy Classification Reported Allergen(s) Allergy Type Date of Onset Reaction(s) Facility (2 sources) Nitrofurantoin; Translations: [NITROFURANTOIN] Drug Allergy 06-18-2019 [facility] Work Phone: Medications Completed/Discontinued Medications Medication Drug Class(es) Dates Sig (Normalized) Sig (Original) Ascorbic Acid (1 source) Vitamin C take 1 tablet by wili th once daily ascorbic acid (VITAMIN C ORAL) Take 1 tablet by mouth once daily. 0 Active Problems Problem Classification Problem Date Documented Da te Episodic/Chronic Spondylosis; intervertebral disc disorders; other back problems (1 source) Neck pain; Translations: [Cervicalgia] 08-30-2023 Episodic Results Test Name Value Interpretation Reference Range Facil ity Vital Signs Date Time Vital Sign Value Performing Clinician Faci lity 08-30-2023 18:06-0500 Body temperature 97.7 [degF] Lisa Orourke WRECKING CRANE ENGINE OPERATORANITA Work Phone: [facility] 08-30-2023 18:06-0500 Body weight 57.97 kg Lisa Orourke APRN.IT APPLICATION ARCHITECT Work Phone: [facility] 08-30-2023 18:06-0500 Diastolic blood pressure 82 mm[Hg] Lisa Orourke APRN.IT APPLICATION ARCHITECT Work Phone: [facility] 08-30-2023 18:06-0500 Heart rate 69 /min Lisa Orourke APRN.IT APPLICATION ARCHITECT Work Phone: [facility] 08-30-2023 18:06-0500 Respiratory rate 18 /min Lisa Orourke APRN.IT APPLICATION ARCHITECT Work Phone: [facility] 08-30-2023 18:06-0500 SaO2% (BldA) [Mass fraction] 99 % Lisa Orourke APRN.IT APPLICATION ARCHITECT Work Phone: [facility] 08-30-2023 18:06-0500 Systolic blood pressure 136 mm[Hg] Lisa Orourke APRN.IT APPLICATION ARCHITECT Work Phone: [facility] Encounters Encounter Date Encounter Type Care Provider Facility Start: 08-30-2023 End: 08-30-2023 ambulatory FIDELIA DUNN Facility:[facility] Start: 08-30-2023 End: 08-30-2023 Patient encounter procedure Lisa Orourke APRN.IT APPLICATION ARCHITECT Work Phone: [facility] Procedures Date Procedure Procedure Detail Performing Clinician Start: 08-30-2023 STREP A MOLECULAR (POC) Lisa Orourke APRN.IT APPLICATION ARCHITECT Work Phone: Plan of Treatment Date Care Activity Detail Author Start: 05-18-2023 Influenza vaccination Influenza Vacc ine (#1) [facility] Start: 09-17-2022 Depression Assessment Depression Ass essment [facility] Start: 2022 RSV Vaccine (1 - 1-d ose 60+ series) RSV Vaccine (1 - 1-dose 60+ series) [facility] Start: 12-28-2020 Urine microalbumin profile DTa P,Tdap,Td Vaccine (2 - Td or Tdap) [facility] Start: 2012 Shingrix Vaccine (1 of 2) Kong grix Vaccine (1 of 2) [facility] Start: 2007 Diabetes Screening Diabetes Screenin g [facility] Start: 2007 Lipid panel Lipid Screening [facility] Start: 2007 Screening for malign ant neoplasm of colon [facility] Start: 2002 Screening for malign ant neoplasm of breast Mammogram Screening [facility] Start: 1992 Screening for malign ant neoplasm of cervix HPV Testing [facility] Start: 1983 Screening for malign ant neoplasm of cervix Pap Testing [facility] Start: 1980 Hepatitis C screening Hepatitis C Sc reening [facility] Start: 1980 HIV screening HIV Screening [facility] Start: 01-15-1963 Covid-19 Vaccine (#1) Covid-19 Vacci ne (#1) [facility] Immunizations Immunization Date Immunization Notes Care Provider Seferino miller 07-20-2014 influenza virus vacc ine, unspecified formulation Lisa Orourke WRECKING CRANE ENGINE OPERATOR.IT APPLICATION ARCHITECT Work Phone: [facility] Payers Date Payer Category Payer Unknown [employer] P[employer] [id number] 2018-Present [phone] [address] [place] [address] PPO [id number] 2018 Unknown [id number] 1960 Unknown [id number] 1960 Unknown [id number] Unknown [id number] Social History Date Type Detail Facility Start: 08-30-2023 Tobacco smoking stat us KSIS Never smoked tobacco [facility] Start: 08-30-2023 Tobacco use and exposure Smoke less tobacco non-user [facility] Start: 08-26-2020 End: 08-30-2023 History of Social function [facility] Start: 08-26-2020 End: 08-30-2023 Tobacco use panel [facility] National Score (1-10 0), lower number is lower risk Not on file [facility] Start: 1960 Sex Assigned At Not on file [facility] Progress note 08-30-2023 Note Date & Type Note Facility 08-30-2023 Note HNO ID: [id number] Author: Lisa Orourke APRN.IT APPLICATION ARCHITECT Service: ? Author Type: Nurse Practitioner Type: Progress Notes Filed: 08/30/2023 6:37 PM Note Text: Subjective The history is provided by the patient. No foreign agent was used. HPI Henny Brothers is a 63 year old female who presents today for CC of neck swelling, discomfort along trachea. This just started this morning. She has not used any treatment or medications. She denies any cough, congestion, runny nose, sore throat, nausea, vomiting or diarrhea. BP 136/82 Pulse 69 Temp 36.5 ?C (97.7 ?F) (Tympanic) Resp 18 Wt 58 kg (127 lb 12.8 oz) SpO2 99% Social History Tobacco Use Smoking status: Never Smokeless tobacco: Never History reviewed. No pertinent past medical history. I have confirmed and edited as necessary, the [facility] Review of Systems Constitutional: Negative for chills and fever. HENT: Negative for congestion, ear pain, sinus pain and sore throat. Neck pain Respiratory: Negative for cough, sputum production, shortness of breath and wheezing. Cardiovascular: Negative for chest pain. Musculoskeletal: Negative for myalgias. Neurological: Negative for headaches. Objective Physical Exam Vitals and nursing note reviewed. HENT: Head: Normocephalic and atraumatic. Right Ear: Tympanic membrane, ear canal and external ear normal. Left Ear: Tympanic membrane, ear canal and external ear normal. Nose: No mucosal edema, congestion or rhinorrhea. Right Sinus: No maxillary sinus tenderness or frontal sinus tenderness. Left Sinus: No maxillary sinus tenderness or frontal sinus tenderness. Mouth/Throat: Pharynx: Uvula midline. No oropharyngeal exudate or posterior oropharyngeal erythema. Neck: Thyroid: No thyroid mass, thyromegaly or thyroid tenderness. Trachea: Trachea normal. Comments: Area of discomfort marked, there are no palpable masses, lymphadenopathy, or enlarged thyroid. Cardiovascular: Rate and Rhythm: Normal rate and regular rhythm. Heart sounds: Normal heart sounds. Pulmonary: Effort: Pulmonary effort is normal. Breath sounds: Normal breath sounds. Musculoskeletal: Cervical back: Normal range of motion. No edema, erythema, rigidity or crepitus. Muscular tenderness present. No pain with movement or spinous process tenderness. Lymphadenopathy: Head: Right side of head: No submental, submandibular or tonsillar adenopathy. Left side of head: No submental, submandibular or tonsillar adenopathy. Cervical: No cervical adenopathy. Right cervical: No superficial, deep or posterior cervical adenopathy. Left cervical: No superficial, deep or posterior cervical adenopathy. Skin: General: Skin is warm and dry. Neurological: Mental Status: She is alert. Psychiatric: Mood and Affect: Affect normal. ASSESSMENT/PLAN: 1. Neck pain - ICD9: 723.1, ICD10: M54.2 Appears to be muscle strain, possible early illness, muscle ache NSAIDs Strep is negative If continued discomfort recommend to follow up with Dr. Le. - STREP A MOLECULAR (POC) Diagnosis and treatment plan were discussed and questions were answered to the patient's satisfaction. Pt acknowledged understanding of concepts and follow up plan. Specific signs and symptoms that would indicate the need for higher level of care were discussed in detail warranting prompt ER evaluation. Lisa Orourke APRN.CNP [facility] Instructions 08-30-2023 Patient Instructions Note Date & Type Note Facility 08-30-2023 Instructions Lisa Orourke APRN.CNP - 08/30/2023 6:31 PM EST Appears to be muscle strain, possible early illness, muscle ache Tylenol (generic acetaminophen) 500 mg-2 tabs every 8 hrs. as needed for fever and aches Ibuprofen 600 mg (3-200mg tablets) every 6 hours Strep is negative If continued discomfort recommend to follow up with Dr. Le. documented in this encounter [facility] History of Present illness Narrative 08-30-2023 Lisa Orourke APRN.CNP - 08/30/2023 6:12 PM EST Note Date & Type Note Facility 08-30-2023 History of Presen t illness Narrative Images from the original note were not included. Subjective The history is provided by the patient. No foreign agent was used. HPI Henny Brothers is a 63 year old female who presents today for CC of neck swelling, discomfort along trachea. This just started this morning. She has not used any treatment or medications. She denies any cough, congestion, runny nose, sore throat, nausea, vomiting or diarrhea. BP 136/82 Pulse 69 Temp 36.5 C (97.7 F) (Tympanic) Resp 18 Wt 58 kg (127 lb 12.8 oz) SpO2 99% Social History Tobacco Use Smoking status: Never Smokeless tobacco: Never History reviewed. No pertinent past medical history. I have confirmed and edited as necessary, the [facility] Review of Systems Constitutional: Negative for chills and fever. HENT: Negative for congestion, ear pain, sinus pain and sore throat. Neck pain Respiratory: Negative for cough, sputum production, shortness of breath and wheezing. Cardiovascular: Negative for chest pain. Musculoskeletal: Negative for myalgias. Neurological: Negative for headaches. Objective Physical Exam Vitals and nursing note reviewed. HENT: Head: Normocephalic and atraumatic. Right Ear: Tympanic membrane, ear canal and external ear normal. Left Ear: Tympanic membrane, ear canal and external ear normal. Nose: No mucosal edema, congestion or rhinorrhea. Right Sinus: No maxillary sinus tenderness or frontal sinus tenderness. Left Sinus: No maxillary sinus tenderness or frontal sinus tenderness. Mouth/Throat: Pharynx: Uvula midline. No oropharyngeal exudate or posterior oropharyngeal erythema. Neck: Thyroid: No thyroid mass, thyromegaly or thyroid tenderness. Trachea: Trachea normal. Comments: Area of discomfort marked, there are no palpable masses, lymphadenopathy, or enlarged thyroid. Cardiovascular: Rate and Rhythm: Normal rate and regular rhythm. Heart sounds: Normal heart sounds. Pulmonary: Effort: Pulmonary effort is normal. Breath sounds: Normal breath sounds. Musculoskeletal: Cervical back: Normal range of motion. No edema, erythema, rigidity or crepitus. Muscular tenderness present. No pain with movement or spinous process tenderness. Lymphadenopathy: Head: Right side of head: No submental, submandibular or tonsillar adenopathy. Left side of head: No submental, submandibular or tonsillar adenopathy. Cervical: No cervical adenopathy. Right cervical: No superficial, deep or posterior cervical adenopathy. Left cervical: No superficial, deep or posterior cervical adenopathy. Skin: General: Skin is warm and dry. Neurological: Mental Status: She is alert. Psychiatric: Mood and Affect: Affect normal. ASSESSMENT/PLAN: 1. Neck pain - ICD9: 723.1, ICD10: M54.2 Appears to be muscle strain, possible early illness, muscle ache NSAIDs Strep is negative If continued discomfort recommend to follow up with Dr. Le. - STREP A MOLECULAR (POC) Diagnosis and treatment plan were discussed and questions were answered to the patient's satisfaction. Pt acknowledged understanding of concepts and follow up plan. Specific signs and symptoms that would indicate the need for higher level of care were discussed in detail warranting prompt ER evaluation. Lisa Orourke APRN.SHERRI documented in this encounter [facility] Evaluation note Note Date & Type Note Facility documented in this encounter [facility] Summary Purpose Family History No Family History Records FoundNo Family History Records FoundNo Family History Records Found Advance Directives No Advanced Directives Records FoundNo Advanced Directives Records FoundNo Advanced Directives Records Found Additional Source Comments INFORMATION SOURCE (unrecogn ized section and content) DATE CREATED AUTHOR AUTHOR'S ORGANIZ ATION 12/20/2022 [facility] DATE CREATED AUTHOR AUTHOR'S ORGANIZ ATION 09/02/2023 [facility] Source Comments (unrecognize d section and content) In the event this informatio n is protected by the Federal Confidentiality of Alcohol and Drug Abuse Patient Records regulations: The Federal rules restrict any use of the information to criminally investigate or prosecute any alcohol or drug abuse patient.[facility] Reason for Visit (unrecogniz ed section and content) Care Teams (unrecognized sec tion and content) FOR RECORDS PERTAINING TO PATIENTS WHO ARE OR HAVE BEEN ENROLLED IN A CHEMICAL DEPENDENCY/SUBSTANCEABUSE PROGRAM, SOME INFORMATION MAY BE OMITTED. This clinical summary was aggregated from multiple sources. Caution should be exercised in using it in the provision of clinical care. This summary normalizes information from multiple sources, and as a consequence, information in this document may materially change the coding, format and clinical context of patient data. In addition, data may be omitted in some cases. CLINICAL DECISIONS SHOULD BE BASED ON THE PRIMARY CLINICAL RECORDS. [facility]. provides no warranty or guarantee of the accuracy or completeness of information in this document.
[2023-10-31 12:30] LABS: Absolute Lymphocyte Count 1.78 X10^3/uL (0.83-4.51); Absolute Neutrophil Count 1.9 X10^3/uL (2.0-7.7); Basophil# 0.06 X10^3/uL; Basophil% 1.3 % (0-1); Eosinophil# 0.37 X10^3/uL; Eosinophils% 8.1 % (0-5); Hematocrit 40.4 % (37-47); Hemoglobin 13.1 g/dL (12.0-15.0); Lymphocyte # 1.78 X10^3/ul (0.83-4.51); Lymphocyte % 38.9 % (19-41); Mean Corp Hgb Conc 32.4 g/dL (32-36); Mean Corpuscular Hgb 32.8 pg (27.0-32.0); Mean Platelet Vol. 10.3 fl (6.2-12.0); Monocyte# 0.41 X10^3/uL; NRBC Flagged by Analyzer 0 % (0-5); Neutrophil # 1.93 X10^3/uL (2.7-7.7); Neutrophil % 42.3 % (47-70); Platelet Count 234 K/mm3 (150-450); RBC Distribution Width CV 11.9 % (11.6-14.6); White Blood Count 4.6 K/mm3 (4.4-11.0)
[2023-10-31 12:54] LABS: ALB/GLOB Ratio 1.3 RATIO (0.9-2.4); AST(SGOT) 17 U/L (15-37); Alanine Aminotransfer ALT/SGPT 36 U/L (13-56); Albumin, Serum 4.1 g/dL (3.2-5.0); Alkaline Phosphatase 39 U/L (45-117); Anion Gap 4 (5-15); BUN 17 mg/dL (7-18); BUN/Creat Ratio 20.7 RATIO (10-20); Calcium,Total 9.5 mg/dL (8.5-10.1); Chloride 105 mmol/L (98-107); Cholesterol 226 mg/dL (200); Creatinine, Serum 0.82 mg/dL (0.55-1.02); EST Glomerular Filtration Rate 75 mL/min (>60); Est Glom Filt Rate - Afr Amer 91 mL/min (>60); Globulin 3.1 g/dL (2.2-4.2); Glucose 92 mg/dL (74-106); High Density Lipoprotein 87 mg/dL; Protein, Total 7.2 g/dL (6.4-8.2); Sodium Level 140 mmol/L (136-145); Triglycerides 68 mg/dL; Very Low Density Lipoprotein 14 mg/dL (5-40)
[2023-10-31 12:56] LABS: Vitamin D,25 Hydroxy 66.2 ng/mL
== END | disposition home or self-care (01) ==
LOC: BIMLAB 07:56
PROVIDERS: PCP Internal Medicine; Referring Provider Internal Medicine; Visit Provider Internal Medicine
DX: Z13.6 Encounter for screening for cardiovascular disorders (principal); M85.80 Other specified disorders of bone density and structure, unspecified site; K21.9 Gastro-esophageal reflux disease without esophagitis
CPT/HCPCS: 36415; 80053; 80061; 82306; 85025

== ENCOUNTER → 2023-11-13 | Outpatient (CLI) | payer OTHER, SELFPAY ==
--- NOTE | 2023-11-13 14:21 | US_ITS ---
STUDY: SUPERFICIAL ULTRASOUND - PALPABLE LUMP IN THE PLANTAR ASPECT OF THE RIGHT FOOT. REASON FOR EXAM: Female, 63 years old. Right Plantar Foot lump TECHNIQUE: A superficial ultrasound was performed with real-time and static mckeon-scale imaging. COMPARISON: None. FINDINGS: Targeted imaging was obtained. The palpable abnormality in the plantar aspect of the foot corresponds to 1 cm x 0.6 cm x 0.3 cm hypoechoic nonvascular structure. This is deep to the skin within the subcutaneous tissue. This may represent a sebaceous cyst. US/Ext Non Vasc Limited/Soft Tiss IMPRESSION: Findings suggestive of a 1 cm x 0.6 cm x 0.3 cm sebaceous cyst in the subcutaneous tissue along the plantar aspect of the foot. Electronically Signed: Tre Reynolds MD at 8:50 EST ,
--- OUTSIDE RECORDS SUMMARY | 2023-11-13 22:53 | XMS RPT_ITS | CCD ---
Author Name Unknown Address [address] [place] [address] Organization [facility] Care Team Providers Care Circular Sawyer Stone Name Role Phone CAROLYNE LE MD Admitting [...] sources) Nitrofurantoin; Translations: [NITROFURANTOIN] Drug Allergy 06-18-[facility] Work Phone: Medications Completed/Discontinued Medications Medication Drug [...] 18:06-0500 Body temperature 97.7 [degF] Lisa Orourke PIPED BUTTONHOLE MACHINE OPERATORANITA Work Phone: [facility] 08-30-2023 18:06-0500 Body weight 57.97 kg Lisa Orourke APRN.HEAD ESTHETICIAN Work Phone: [facility] 08-30-2023 18:06-0500 Diastolic blood pressure 82 mm[Hg] Lisa Orourke APRN.HEAD ESTHETICIAN Work Phone: [facility] 08-30-2023 18:06-0500 Heart rate 69 /min Lisa Orourke APRN.HEAD ESTHETICIAN Work Phone: [facility] 08-30-2023 18:06-0500 Respiratory rate 18 /min Lisa Orourke APRN.HEAD ESTHETICIAN Work Phone: [facility] 08-30-2023 18:06-0500 SaO2% (BldA) [Mass fraction] 99 % Lisa Orourke APRN.HEAD ESTHETICIAN Work Phone: [facility] 08-30-2023 18:06-0500 Systolic blood pressure 136 mm[Hg] Lisa Orourke APRN.HEAD ESTHETICIAN Work Phone: [facility] Encounters Encounter Date Encounter Type Care Provider Facility Start: 08-30-2023 End: 08-30-2023 ambulatory FIDELIA DUNN Facility:[facility] Start: 08-30-2023 End: 08-30-2023 Patient encounter procedure Lisa Orourke APRN.HEAD ESTHETICIAN Work Phone: [facility] Procedures Date Procedure Procedure Detail Performing Clinician Start: 08-30-2023 STREP A MOLECULAR (POC) Lisa Orourke APRN.HEAD ESTHETICIAN Work Phone: Plan of Treatment Date Care Activity Detail Author Start: 05-18-2023 Influenza vaccination Influenza Vacc ine (#1) [facility] Start: 09-17-2022 Depression Assessment Depression Ass essment [facility] Start: 2022 RSV Vaccine (1 - 1-d ose 60+ series) RSV Vaccine (1 - 1-dose 60+ series) [facility] Start: 12-28-2020 Urine microalbumin profile DTa P,Tdap,Td Vaccine (2 - Td or Tdap) [facility] Start: 2012 Shingrix Vaccine (1 of 2) Kong grix Vaccine (1 of 2) [facility] Start: 2007 Diabetes Screening Diabetes Screenin g [facility] Start: 2007 Lipid panel Lipid Screening [facility] Start: 2007 Screening for malign ant neoplasm of colon [facility] Start: 2002 Screening for malign ant neoplasm of breast Mammogram Screening [facility] Start: 1992 Screening for malign ant neoplasm of cervix HPV Testing [facility] Start: 1983 Screening for malign ant neoplasm of cervix Pap Testing [facility] Start: 1980 Hepatitis C screening Hepatitis C Sc reening [facility] Start: 1980 HIV screening HIV Screening [facility] Start: 01-15-1963 Covid-19 Vaccine (#1) Covid-19 Vacci ne (#1) [facility] Immunizations Immunization Date Immunization Notes Care Provider Seferino miller 07-20-2014 influenza virus vacc ine, unspecified formulation Lisa Orourke PIPED BUTTONHOLE MACHINE OPERATOR.HEAD ESTHETICIAN Work Phone: [facility] Payers Date Payer Category Payer Unknown [employer] P[employer] [id number] 2018-Present [phone] [address] [place] [address] PPO [id number] 2018 Unknown [id number] 1960 Unknown [id number] 1960 Unknown [id number] Unknown [id number] Social History Date Type Detail Facility Start: 08-30-2023 Tobacco smoking stat us NMIS Never smoked tobacco [facility] Start: 08-30-2023 Tobacco use and exposure Smoke less tobacco non-user [facility] Start: 08-26-2020 End: 08-30-2023 History of Social function [facility] Start: 08-26-2020 End: 08-30-2023 Tobacco use panel [facility] National Score (1-10 0), lower number is lower risk Not on file [facility] Start: 1960 Sex Assigned At Not on file [facility] Progress note 08-30-2023 Note Date & Type Note Facility 08-30-2023 Note HNO ID: [id number] Author: Lisa Orourke APRN.HEAD ESTHETICIAN Service: ? Author Type: Nurse Practitioner Type: Progress Notes Filed: 08/30/2023 6:37 PM Note Text: Subjective The history is provided by the patient. No director speech language was used. HPI [employer] is a [...] have confirmed and edited as necessary, the [facility] Review of Systems Constitutional: Negative for chills [...] warranting prompt ER evaluation. Lisa Orourke APRN.CNP [facility] Instructions 08-30-2023 Patient Instructions Note Date [...] with Dr. Le. documented in this encounter [facility] History of Present illness Narrative 08-30-2023 Lisa Orourke APRN.CNP - 08/30/2023 6:12 PM EST Note Date & Type Note Facility 08-30-2023 History of Presen t illness Narrative Images from the original note were not included. Subjective The history is provided by the patient. No director speech language was used. HPI [employer] is a [...] have confirmed and edited as necessary, the [facility] Review of Systems Constitutional: Negative for chills [...] discussed in detail warranting prompt ER evaluation. Lsia Orourke APRN.SHERRI documented in this encounter [facility] Evaluation note Note Date & Type Note Facility documented in this encounter [facility] Summary Purpose Family History No Family History Records FoundNo Family History Records FoundNo Family History Records Found Advance Directives No Advanced Directives Records FoundNo Advanced Directives Records FoundNo Advanced Directives Records Found Additional Source Comments INFORMATION SOURCE (unrecogn ized section and content) DATE CREATED AUTHOR AUTHOR'S ORGANIZ ATION 12/20/2022 [facility] DATE CREATED AUTHOR AUTHOR'S ORGANIZ ATION 09/02/2023 [facility] Source Comments (unrecognize d section and content) In the event this informatio n is protected by the Federal Confidentiality of Alcohol and Drug Abuse Patient Records regulations: The Federal rules restrict any use of the information to criminally investigate or prosecute any alcohol or drug abuse patient.[facility] Reason for Visit (unrecogniz ed section and [...] BE BASED ON THE PRIMARY CLINICAL RECORDS. [facility]. provides no warranty or guarantee of the accuracy or completeness of information in this document.
== END | disposition home or self-care (01) ==
PROVIDERS: PCP Internal Medicine; Referring Provider Internal Medicine; Visit Provider Internal Medicine
DX: R22.41 Localized swelling, mass and lump, right lower limb (principal)
CPT/HCPCS: 76882

== ENCOUNTER → 2024-05-05 | Outpatient (CLI) | payer OTHER, SELFPAY ==
[2024-05-05 12:34] LABS: Absolute Neutrophil Count 4.8 X10^3/uL (2.0-7.7); Basophil# 0.06 X10^3/uL; Basophil% 0.8 % (0-1); Eosinophil# 0.45 X10^3/uL; Eosinophils% 5.8 % (0-5); Hematocrit 39.5 % (37-47); Lymphocyte % 24.5 % (19-41); Mean Corp Hgb Conc 32.9 g/dL (32-36); Mean Corpuscular Hgb 32.7 pg (27.0-32.0); Mean Corpuscular Volume 99.5 fL (81-99); Mean Platelet Vol. 10.2 fl (6.2-12.0); Monocyte# 0.53 X10^3/uL; Monocyte% 6.8 % (0-10); NRBC Flagged by Analyzer 0 % (0-5); Neutrophil # 4.79 X10^3/uL (2.7-7.7); Platelet Count 229 K/mm3 (150-450); RBC Distribution Width CV 12.1 % (11.6-14.6); RBC Distribution Width SD 44.1 fl (35.1-43.9); Red Blood Count 3.97 M/mm3 (4.2-5.4); White Blood Count 7.7 K/mm3 (4.4-11.0)
[2024-05-05 12:57] LABS: Anion Gap 7 (5-15); BUN 16 mg/dL (7-18); BUN/Creat Ratio 19.7 RATIO (10-20); Calcium,Total 9.3 mg/dL (8.5-10.1); Chloride 103 mmol/L (98-107); Creatinine, Serum 0.81 mg/dL (0.55-1.02); EST Glomerular Filtration Rate 76 mL/min (>60); Est Glom Filt Rate - Afr Amer 92 mL/min (>60); Glucose 101 mg/dL (74-106); Sodium Level 138 mmol/L (136-145)
== END | disposition home or self-care (01) ==
LOC: BIMLAB 11:10
PROVIDERS: PCP Internal Medicine; Referring Provider Internal Medicine; Visit Provider Internal Medicine
DX: K21.9 Gastro-esophageal reflux disease without esophagitis (principal); E87.6 Hypokalemia
CPT/HCPCS: 36415; 80048; 85025

== ENCOUNTER → 2024-07-03 | Outpatient (CLI) | payer OTHER, SELFPAY ==
[2024-07-03 15:17] LABS: Absolute Lymphocyte Count 1.41 X10^3/uL (0.83-4.51); Absolute Neutrophil Count 3.6 X10^3/uL (2.0-7.7); Basophil# 0.05 X10^3/uL; Basophil% 0.8 % (0-1); Eosinophil# 0.34 X10^3/uL; Eosinophils% 5.7 % (0-5); Hematocrit 40.7 % (37-47); Hemoglobin 13.1 g/dL (12.0-15.0); Lymphocyte # 1.41 X10^3/ul (0.83-4.51); Lymphocyte % 23.8 % (19-41); Mean Corp Hgb Conc 32.2 g/dL (32-36); Mean Corpuscular Hgb 32.7 pg (27.0-32.0); Mean Corpuscular Volume 101.5 fL (81-99); Mean Platelet Vol. 10.8 fl (6.2-12.0); Monocyte# 0.55 X10^3/uL; Monocyte% 9.3 % (0-10); NRBC Flagged by Analyzer 0 % (0-5); Neutrophil # 3.55 X10^3/uL (2.7-7.7); Neutrophil % 60.1 % (47-70); Platelet Count 250 K/mm3 (150-450); RBC Distribution Width CV 12.3 % (11.6-14.6); Red Blood Count 4.01 M/mm3 (4.2-5.4); White Blood Count 5.9 K/mm3 (4.4-11.0)
[2024-07-03 15:36] LABS: ALB/GLOB Ratio 1.2 RATIO (0.9-2.4); AST(SGOT) 17 U/L (15-37); Alanine Aminotransfer ALT/SGPT 26 U/L (13-56); Albumin, Serum 4.3 g/dL (3.2-5.0); Alkaline Phosphatase 40 U/L (45-117); Anion Gap 6 (5-15); BUN 16 mg/dL (7-18); BUN/Creat Ratio 21.4 RATIO (10-20); Calcium,Total 9.7 mg/dL (8.5-10.1); Chloride 103 mmol/L (98-107); Creatinine, Serum 0.75 mg/dL (0.55-1.02); EST Glomerular Filtration Rate 84 mL/min (>60); Est Glom Filt Rate - Afr Amer 101 mL/min (>60); Globulin 3.5 g/dL (2.2-4.2); Glucose 101 mg/dL (74-106); Magnesium 2.3 mg/dL (1.6-2.6); Potassium 3.9 mmol/L (3.5-5.1); Protein, Total 7.8 g/dL (6.4-8.2); Sodium Level 139 mmol/L (136-145); T4 Free Direct 0.95 ng/dL (0.76-1.46)
== END | disposition home or self-care (01) ==
LOC: BIMLAB 11:25
PROVIDERS: PCP Internal Medicine; Referring Provider Nurse Practitioner; Visit Provider Nurse Practitioner
DX: R00.0 Tachycardia, unspecified (principal)
CPT/HCPCS: 36415; 80053; 83735; 84439; 84443; 85025

== ENCOUNTER → 2024-07-10 | Outpatient (CLI) | payer OTHER, SELFPAY ==
--- OUTSIDE RECORDS SUMMARY | 2024-07-10 17:56 | XMS RPT_ITS | CCD ---
Author Organization [facility] Care Team Providers Care Workers' Compensation Claims Examiner Name Role Phone CAROLYNE RIBEIRO MD Admitting Unavailable CAROLYNE RIBEIRO MD Primary Care Unavailable CAROLYNE RIBEIRO MD Consulting Unavailable CAROLYNE RIBEIRO MD Attending Unavailable PROVIDER, UNKNOWN Consulting Unavailable CAROLYNE RIBEIRO MD Consulting Unavailable CHARLOTTE MONTERO MD Admitting CHARLOTTE Arriaga MD Primary Care UnavailCHARLOTTE Fernández MD Attending Unavailabl e PROVIDER, UNKNOWN Consulting Unavailable Goldy MEDEIROS.Fidelia POLANCO Primary Care Provider FIDELIA DUNN Primary Care Unavailable Allergies Allergy Classification Reported Allergen(s) Allergy Type Date of Onset Reaction(s) Facility (3 sources) Nitrofurantoin; Translations: [NITROFURANTOIN] Drug Allergy 06-18-2019 Rash [facility] Work Phone: Medications Completed/Discontinued Medications Medication Drug Class(es) Dates Sig (Normalized) Sig (Original) Ascorbic Acid (2 sources) Vitamin C take 1 tablet by mouth once daily ascorbic acid (VITAMIN C ORAL) Take 1 tablet by mouth once daily. 0 Active Comment on above: [facility]. B Complex Vitamins capsule (2 sources) take 1 capsule by mouth once daily B Complex Vitamins capsule Take 1 capsule by mouth once daily. 0 Active Comment on above: Take 1 capsule by mo [facility] once daily. busPIRone hydrochloride 10 mg oral tablet (2 sources) Start: 08-10-2023 take 2 tablets by mouth every twelve hours busPIRone (BUSPAR) 10 mg tablet Take 2 tablets by mouth every 12 hours. 0 08/10/2023 Active Comment on above: Take 2 tablets by mo [facility] every 12 hours. Calcium Carbonate / vitamin D3 (2 sources) take 1 tablet by mouth once daily calcium carbonate/vitami n D3 (CALCIUM 600 + D ORAL) Take 1 tablet by mouth once daily. 0 Active Comment on above: Take 1 tablet by [facility] once daily. cholecalciferol, vitamin D3, (VITAMIN D3 ORAL) (2 sources) take 4000 [IU] by mouth once daily cholecalciferol, vitamin D3, (VITAMIN D3 ORAL) Take by mouth. 4000 units daily 0 Active Comment on above: Take by mouth. 4000 units daily ibandronic acid 150 mg oral tablet (2 sources) Bisphosphonate Start: 07-09-2023 take 1 tablet by mouth every month Ibandronate 150 mg tablet TAKE ONE TABLET BY MOUTH EVERY MONTH 0 07/09/2023 Active Comment on above: TAKE ONE TABLET BY M OUTH EVERY MONTH microencapsulated potassium chloride 20 meq extended release oral tablet (2 sources) Start: 07-23-2023 take 2 tablets by mouth once potassium chloride ER (KLOR-CON) 20 mEq tablet Take 2 tablets by mouth every afternoon. 0 07/23/2023 Active Comment on above: Take 2 tablets by mo ny[facility] every afternoon. Problems Problem Classification Problem Date Documented Da te Episodic/Chronic Spondylosis; intervertebral disc disorders; other back problems (1 source) Neck pain; Translations: [Cervicalgia] 08-30-2023 Episodic Results Test Name Value Interpretation Reference Range Keerthi maryellen Madi 12-28-2023 [facility] Telephone (AGGENS4) HENNY BROTHERS ([id number]) 1960 F Date Time Provider Department 12/28/23 [facility] PROVIDER AGGENS4 During your visit today, we recorded the following information about you: Briseida De La Garza 12/28/2023 9:42 AM Signed Pt. Update 12.28.23- gastro portal call left message as well as sent email with phone number for pt to call to sched appt. Note: consult gastro. bloating, early satiety, no appetite, constipation Allergies As of Date: 12/28/2023 Noted Allergy Reaction NITROFURANTOIN 06/18/2019 2 - Rash Date Reviewed: 08/30/2023 Reviewed by: Lisa Orourke APRN.CNP - Fully Assessed Reason for Visit: Patient Update [1234] Prescriptions as of 12/28/2023 - busPIRone (BUSPAR) 10 mg tablet Take 2 tablets by mouth every 12 hours. - Ibandronate 150 mg tablet TAKE ONE TABLET BY MOUTH EVERY MONTH - potassium chloride ER (KLOR-CON) 20 mEq tablet Take 2 tablets by mouth every afternoon. - cholecalciferol, vitamin D3, (VITAMIN D3 ORAL) Take by mouth. 4000 units daily - calcium carbonate/vitamin D3 (CALCIUM 600 + D ORAL) Take 1 tablet by mouth once daily. - ascorbic acid (VITAMIN C ORAL) Take 1 tablet by mouth once daily. - B Complex Vitamins capsule Take 1 capsule by mouth once daily. Problem List As Of Date: 12/28/2023 (None) Encounter Status:Closed by BRISEIDA DE LA GARZA on 12/28/23 [facility] 08-30-2023 [facility] Office Visit (UCWSTR ) HENNY BROTHERS ([id number]) 1960 F Date Time Provider Department 08/30/23 6:00 PM LISA OROURKE [facility] During your visit today, we recorded the following information about you: Temperature Pulse Respiration Blood pressure 97.7 degrees 69/minute 18/minute 136/82 Weight 58 kg Lisa Orourke APRN.CNP 08/30/2023 6:37 PM Signed Subjective The history is provided by the patient. No educational sign language interpreter was used. HPI Henny Brothers is a [...] have confirmed and edited as necessary, the [facility] Review of Systems Constitutional: Negative for chills [...] discomfort recommend to follow up with Dr. Ribeiro. - STREP A MOLECULAR (POC) Diagnosis and treatment plan were discussed and questions were answered to the patient's satisfaction. Pt acknowledged understanding of concepts and follow up plan. Specific signs and symptoms that would indicate the need for higher level of care were discussed in detail warranting prompt ER evaluation. HARJIT Brizuela Tonya, APRN.CNP 08/30/2023 6:31 PM Signed Appears to be muscle strain, possible early illness, muscle ache Tylenol (generic acetaminophen) 500 mg-2 tabs every 8 hrs. as needed for fever and aches Ibuprofen 600 mg (3-200mg tablets) every 6 hours Strep is negative If continued discomfort recommend to follow up with Dr. Ribeiro. Allergies As of Date: 08/30/2023 Noted Allergy Reaction NITROFURANTOIN 06/18/2019 2 - Rash Date Reviewed: 08/30/2023 Reviewed by: Lisa Orourke APRN.ASSEMBLER EQUIPMENT - Fully Assessed Reason for Visit: Throat Problem [109] Cmt: Throat feels swollen and tender-whole neck is tender x 1 day Primary Visit Diagnosis:Neck pain [M54.2] Order(s):STREP A MOLECULAR (POC) [[id number]] Order #: [id number]. #:[id number] Prescriptions as of 08/30/2023 - busPIRone (BUSPAR) 10 mg tablet Take 2 tablets by mouth every 12 hours. - Ibandronate 150 mg tablet TAKE ONE TABLET BY MOUTH EVERY MONTH - potassium chloride ER (KLOR-CON) 20 mEq tablet Take 2 tablets by mouth every afternoon. - cholecalciferol, vitamin D3, (VITAMIN D3 ORAL) Take by mouth. 4000 units daily - calcium carbonate/vitamin D3 (CALCIUM 600 + D ORAL) Take 1 tablet by mouth once daily. - ascorbic acid (VITAMIN C ORAL) Take 1 t (more content not included)... Normal [facility] STREP A MOLECULAR (POC)on Procedural Control Valid [facility] Strep A (POCT) Negative Negative [facility] CV ECHO COMPLETEon CV ECHO COMPLETE [place] [address] Patient: HENNY BROTHERS Phone#: : 1960 Age: 62 Gender: F Pt. Type: Out Account: [id number] Location: 052 Ordering: CHARLOTTE MONTERO Exam Date: 12/18/202211:19 Family Phys: CAROLYNE Marquez MIMI Charge Code: [id number] Physician: Kemper Order #: [id number] Dose#: PROCEDURE: ECHOCARDIOGRAM WITH DOPPLER AND COLOR FLOW HISTORY: Patient is a 62-year-old female with history of palpitation INDICATIONS: palpitations COMPARISON: None. TECHNIQUE: A 2-D ultrasound, color spectral Doppler and M-mode evaluation of the heart and great vessels. PATIENT MEASUREMENTS: Height (in.): 66 BSA: 1.7 Weight (lbs.): 128 BP: 128/80 Payroll Tax Analyst: PHILLIP M MODE 2D MEASUREMENTS AND CALCULATIONS: LVIDd: 4.66 cm LVIDs: 2.97 cm IVSd: 1.01 cm LVPWd: 0.96 cm LVOT diam: 2.7 cm FS: 36.34 % Ao Root diam: 3.06 cm LA diam: 4.0 cm LA Volume Index: 19 mL/m2 LA A4 Area: 15.38 cm2 RA A4 Area: 14.2 cm2 RVDd: 3.30 cm TAPSE: 20 mm DOPPLER MEASUREMENTS AND CALCULATIONS MITRAL MV E MAX faustino: 0.72 m/s MV A MAX faustino: 0.76 m/s MV E-A ratio: 0.95 Lat Peak E' Faustino 12 cm/sec Septal Peak E' FAUSTINO 8 cm/sec E/E' lateral 6 E/E' medial 9 Continued Report - Page 2 of 3 Patient: HENNY BROTHERS Phone#: : 1960 Age: 62 Gender: F Pt. Type: Out Account: [id number] Location: 052 Ordering: CHARLOTTE TOTHMolly Exam Date: 12/18/2022/11:19 Family Phys: ILDAKERVINGUY RIBEIRO Charge Code: [id number] Physician: Kemper Order #: [id number] Dose#: AORTIC Ao V2 max: 1.40 m/s Ao max P.86 mm[Hg] LV V1 Max 0.89 m/s LV V1 Max PG 3.17 mm[Hg] PULMONIC PA V2 Max 0.86 m/s PA Max PG 2.94 mm[Hg] TRICUSPID TR Max Faustino 2.37 m/s TR max PG 22.65 mm[Hg] RVSP 26 mm Hg 2D/M-MODE AND COLOR FLOW LEFT VENTRICLE: Left ventricle is normal in size and thickness. Systolic ejection fraction is 55-60%. There are no regional wall motion abnormality seen. Diastolic function is normal WALL MOTION: 1 - Basal anterior: Normal. 7 - Mid anterior: Normal. 13 - Apical anterior: Normal. 2 - Basal anteroseptal: Normal. 8 - Mid anteroseptal: Normal. 14 - Apical septal: Normal. 3 - Basal inferoseptal: Normal. 9 - Mid inferoseptal: Normal. 15 - Apical inferior: Normal. 4 - Basal inferior: Normal. 10-Mid inferior: Normal. 16 - Apical lateral: Normal. 5 - Basal inferolateral: Normal. 11-Mid inferolateral: Normal. 6 - Basal anterolateral: Normal. 12-Mid anterolateral: Normal. RIGHT VENTRICLE: Right ventricle is normal in size and systolic function. LEFT ATRIUM: Left atrium is normal in size. RIGHT ATRIUM: Right atrium is normal in size. ATRIAL SEPTUM: There is no large interatrial shunt seen. PFO was not assessed. MITRAL VALVE: Mitral valve appears normal in structure. There is trivial regurgitation and no stenosis seen TRICUSPID VALVE: Tricuspid valve appears normal in structure. There is trivial regurgitation and no stenosis AORTIC VALVE: Aortic valve is trileaflet. There is no regurgitation or stenosis seen. PULMONIC VALVE: Pulmonic valve is inadequately visualized. Doppler shows no significant regurgitation or stenosis AORTIC ROOT: Aortic root is normal in size. AORTIC ARCH: Aortic arch is normal in size DESC THORACIC AORTA: Descending aorta is normal in size. Doppler shows normal systolic diastolic flow IVC/SVC: IVC is normal in size with more than 50% collapse of inspiration. Estimated right atrial pressure is 3 mm Hg. PULMONARY VEINS: Normal pulmonic vein flow PERICARDIUM: There is no pericardial effusion seen Continued Report - Page 3 of 3 Patient: HENNY BROTHERS Phone#: : 1960 Age: 62 Gender: F Pt. Type: Out Account: [id number] Location: 052 Ordering: CHARLOTTE MONTERO Exam Date: 12/18/2022/11:19 Family Phys: CAROLYNE RIBEIRO Charge Code: [id number] Physician: Kemper Order #: [id number] Dose#: CONCLUSION: 1. Left ventricle is normal in size and thickness. Systolic ejection fraction is 55-60% with normal wall motion. 2. There are no significant valvular dysfunction seen 3. Right ventricle is normal in size and systolic function 4. Estimated right ventricular systolic pressure is 26 mm Hg. Dictated by: CHARLOTTE MONTERO MD on 12/18/2022 at 12:10 Approved by: CHARLOTTE MONTERO MD on 12/18/2022 at 12:33 Normal [facility] TSHon 12-18-2022 TSH Qn 1.86 m[IU]/L Normal 0.35 - 3.74 [facility] Comment on above: Performed By: #### 2 [id number] #### [facility],[address] [place] [address] 3D MAMM BILAT SCREENon 07-31 3D MAMM BILAT SCREEN [place] [address] Patient: HENNY BROTHERS Phone#: : 1960 Age: 62 Gender: F Pt. Type: Out Account: [id number] Location: 052 Ordering: MIMI BARFIELD Exam Date: 07/31/2022/16:17 Family Phys: Charge Code: [id number] Physician: Kemper Order #: [id number] Dose#: PROCEDURE: BILATERAL SCREENING BREAST TOMOSYNTHESIS MAMMOGRAM WITH CAD COMPARISON: [facility], BILAT SCREENING, 12/09/2018, 8:05. [facility], 3D BILAT SCREEN, 02/22/2021, 15:02. INDICATIONS: screening BREAST COMPOSITION: Heterogeneously dense,which may obscure small masses. FINDINGS: DIAGNOSTIC CATEGORY 1--NEGATIVE ASSESSMENT. RIGHT BREAST: No significant suspicious finding. No significant change has occurred. LEFT BREAST: No significant suspicious finding. No significant change has occurred. RECOMMENDATIONS: ROUTINE MAMMOGRAM AND CLINICAL EVALUATION IN 12 MONTHS. PLEASE NOTE: A NORMAL MAMMOGRAM DOES NOT EXCLUDE THE POSSIBILITY OF BREAST CANCER. A CLINICALLY SUSPICIOUS PALPABLE LUMP SHOULD BE BIOPSIED. THIS FACILITY UTILIZES A REMINDER SYSTEM TO ENSURE THAT ALL PATIENTS RECEIVE REMINDER LETTERS FOR APPOINTMENTS. THIS INCLUDES REMINDERS FOR ROUTINE MAMMOGRAMS, DIAGNOSITC MAMMOGRAMS, OR OTHER BREAST IMAGING INTERVENTIONS WHEN APPROPRIATE. THIS PATIENT WILL BE PLACED IN THE APPROPRIATE REMINDER SYSTEM. Dictated by: Whitley Freitas MD on 07/31/2022 at 18:04 Approved by: Whitley Freitas MD on 07/31/2022 at 18:08 [facility] Final Surgical Pathology Rep cezar 04-24-2019 Final Surgical Pathology Report . Pathology Reports Accession: Collected Date/Time: Received Date/Time: Pathologist: [id number] 04/22/2019 08:39 EDT 04/23/2019 08:39 EDT ROXANA ADAMS MD Final Surgical Pathology Report DIAGNOSIS: SKIN, RIGHT UPPER INDEX FINGER -- FRAGMENTS OF SKIN WITH HYPERKERATOSIS, BONY TISSUE AND DENSE FIBROUS TISSUE IDENTIFIED. NO EVIDENCE OF MALIGNANCY. CLINICAL INFORMATION: MUCOUS CYST SPECIMEN: A SKIN CYST - RIGHT UPPER INDEX FINGER GROSS DESCRIPTION: Received in formalin labeled right index finger cyst is a 1.0 x 0.6 x 0.4 cm aggregate of fragmented davalos soft tissue. Specimens are inked and submitted in toto in one cassette. Dictated by Pamela CHAN ([facility] MICROSCOPIC DESCRIPTION: Slides reviewed. Electronically Signed by Pathology Report verified by [facility] Electronically signed by ROXANA ADAMS Sign out Date: 04/24/2019 16:05 Performing Lab: [facility], [address] [place] [address] (MD) Comment on above: Performed By: #### S PFR #### [place] [address] Cover Stripper Cytology Reporton 2018 Cover Stripper Cytology Report . Pathology Reports Accession: Collected Date/Time: Received Date/Time: Pathologist: [id number] 10/14/2018 08:54 EST 10/14/2018 18:00 EST Cover Stripper Cytology Report SPECIMEN: Specimen Description: Liquid Prep Reflex ASCUS Specimen: Cervical Screening or Diagnostic: Screening RELEVANT HISTORY: LMP: not given [id number] SPECIMEN ADEQUACY: SATISFACTORY FOR EVALUATION ENDOCERVICAL/TRANSFORM ATIONAL ZONE COMPONENT ABSENT/INSUFFICIENT INTERPRETATION/RESULTS : NEGATIVE FOR INTRAEPITHELIAL LESION OR MALIGNANCY Electronically Signed by Pathology report verified by [facility] Screened by: [place] Electronically signed by Hiwot LIN (ASCP) Sign-Out Date: 10/21/2018 12:57 Performing Lab: [address] Disclaimer The Pap test is a screening test for cervical cancer. As evidenced by published data, it is subject to both inherent false negative and false positive results. Your patient's results should be interpreted in context with pertinent clinical history including gynecological examination. Normal [facility] (MD) Comment on above: Performed By: #### G YCR #### [place] [address] Cover Stripper Cytology Reporton 2018 Cover Stripper Cytology Report . Pathology Reports Accession: Collected Date/Time: Received Date/Time: Pathologist: [id number] 10/04/2018 15:48 EST 10/04/2018 18:00 ROXANA GONZALEZ MD Cover Stripper Cytology Report SPECIMEN: Specimen Description: Liquid Prep w/ HPV Specimen: Cervical Screening or Diagnostic: Screening RELEVANT HISTORY: LMP: 09/17/2006 [id number] SPECIMEN ADEQUACY: Specimen processed and examined, but unsatisfactory for evaluation of epithelial abnormality because of Scant Cellularity. INTERPRETATION/RESULTS : UNSATISFACTORY SPECIMEN. ADJUNCTIVE TESTING: COMMENT: HPV TESTING CANCELLED DUE TO UNSATISFACTORY SPECIMEN, SCANT CELLULARITY. Electronically Signed by Pathology report verified by [facility] Screened by: CHICO GORMAN Electronically signed by ROXANA ADAMS Sign-Out Date: 10/10/2018 13:13 Performing Lab: [address] Disclaimer The Pap test is a screening test for cervical cancer. As evidenced by published data, it is subject to both inherent false negative and false positive results. Your patient's results should be interpreted in context with pertinent clinical history including gynecological examination. Normal [facility] (MD) Comment on above: Performed By: #### G YCR #### [facility] [address] [place] [address] Vital Signs Date Time Vital Sign Value Performing Clinician [facility] 08-30-2023 18:06-0500 Body temperature 97.7 [degF] Lisa Sharad HOUSEKEEPER SUPERVISOR.ASSEMBLER EQUIPMENT Work Phone: [facility] 08-30-2023 18:06-0500 Body weight 57.97 kg Lisa Sharad HOUSEKEEPER SUPERVISOR.ASSEMBLER EQUIPMENT Work Phone: [facility] 08-30-2023 18:06-0500 Diastolic blood pressure 82 mm[Hg] Lisa Sharad HOUSEKEEPER SUPERVISOR.ASSEMBLER EQUIPMENT Work Phone: [facility] 08-30-2023 18:06-0500 Heart rate 69 /min Lisa Sharad HOUSEKEEPER SUPERVISOR.ASSEMBLER EQUIPMENT Work Phone: [facility] 08-30-2023 18:06-0500 Respiratory rate 18 /min Lisa Sharad HOUSEKEEPER SUPERVISOR.ASSEMBLER EQUIPMENT Work Phone: [facility] 08-30-2023 18:06-0500 SaO2% (BldA) [Mass fraction] 99 % Lisa Sharad HOUSEKEEPER SUPERVISOR.ASSEMBLER EQUIPMENT Work Phone: [facility] 08-30-2023 18:06-0500 Systolic blood pressure 136 mm[Hg] Lisa Sharad HOUSEKEEPER SUPERVISOR.ASSEMBLER EQUIPMENT Work Phone: [facility] Encounters Encounter Date Encounter Type Care Provider Facility Start: 12-28-2023 Telephone encounter [facility] Provider [facility] Comment on above: Patient Update Start: 08-30-2023 End: 08-30-2023 ambulatory FIDELIA DUNN Facility:[facility] Start: 08-30-2023 End: 08-30-2023 Patient encounter procedure Lisa Sharad HOUSEKEEPER SUPERVISOR.ASSEMBLER EQUIPMENT Work Phone: [facility] Comment on above: Neck pain (Primary D x) Start: 12-18-2022 End: 12-18-2022 ambulatory CAROLYNE Angeles [facility] Start: 07-31-2022 End: 07-31-2022 ambulatory CAROLYNE Angeles [facility] Procedures Date Procedure Procedure Detail Performing Clinician Start: 08-30-2023 STREP A MOLECULAR (POC) Lisa Orourke APRN.CNP Work Phone: Plan of Treatment Date Care Activity Detail Author Start: 05-18-2024 Influenza vaccination Influenz a Vaccine (Season Ended) [facility] Start: 09-17-2023 Behavioral Health Screening Behavioral Health Screening [facility] Start: 05-18-2023 Covid-19 Vaccine ( season) Covid-19 Vaccine ( season) [facility] Start: 05-18-2023 Influenza vaccination Influenza Vacc ine (#1) [facility] Start: 09-17-2022 Depression Assessment Depression Ass essment [facility] Start: 2022 RSV Vaccine (1 - 1-d ose 60+ series) RSV Vaccine (1 - 1-dose 60+ series) [facility] Start: 12-28-2020 Urine microalbumin profile DTa P,Tdap,Td Vaccine (2 - Td or Tdap) [facility] Start: 2012 Shingrix Vaccine (1 of 2) Kong grix Vaccine (1 of 2) [facility] Start: 2007 Diabetes Screening Diabetes Screenin g [facility] Start: 2007 Lipid panel Lipid Screening [facility] Start: 2007 Screening for malign ant neoplasm of colon [facility] Start: 2002 Screening for malign ant neoplasm of breast Mammogram Screening [facility] Start: 1992 Screening for malign ant neoplasm of cervix HPV Testing [facility] Start: 1983 Screening for malign ant neoplasm of cervix Pap Testing [facility] Start: 1980 Hepatitis C screening Hepatitis C Sc reening [facility] Start: 1980 HIV screening HIV Screening [facility] Start: 01-15-1963 Covid-19 Vaccine (#1) Covid-19 Vacci ne (#1) [facility] Immunizations Immunization Date Immunization Notes Care Provider Fa paul 07-20-2014 influenza virus vacc ine, unspecified formulation Lisa Orourke APRN.CNP Work Phone: [facility] Payers Date Payer Category Payer Unknown [employer] P[employer] [id number] 2018-Present [phone] [address] [place] [address] PPO [id number] 2018 Unknown [id number] 1960 Unknown [id number] 1960 Unknown [id number] Unknown [id number] Social History Date Type Detail Facility Start: 08-30-2023 [facility] Start: 08-30-2023 Tobacco use and exposure Smoke less tobacco non-user [facility] Start: 08-26-2020 End: 08-30-2023 History of Social function [facility] Start: 08-26-2020 End: 08-30-2023 Tobacco use panel [facility] National Score (1-10 0), lower number is lower risk Not on file [facility] Start: 1960 Sex Assigned At Not on file [facility] Note 12-28-2023 Telephone Encounter - Briseida De La Garza - 12/28/2023 9:40 AM EDT Note Date & Type Note Facility 12-28-2023 Miscellaneous Notes Formattin g of this note might be different from the original. Pt. Update 4..24- gastro portal call left message as well as sent email with phone number for pt to call to sched appt. Note: consult gastro. bloating, early satiety, no appetite, constipation documented in this encounter [facility] Progress note 08-30-2023 Note Date & Type Note Facility 08-30-2023 Note HNO ID: [id number] Author: Lisa Orourke APRN.ASSEMBLER EQUIPMENT Service: ? Author Type: Nurse Practitioner Type: Progress Notes Filed: 08/30/2023 6:37 PM Note Text: Subjective The history is provided by the patient. No educational sign language interpreter was used. HPI Henny Brothers is a [...] have confirmed and edited as necessary, the [facility] Review of Systems Constitutional: Negative for chills [...] discomfort recommend to follow up with Dr. Ribeiro. - STREP A MOLECULAR (POC) Diagnosis and treatment plan were discussed and questions were answered to the patient's satisfaction. Pt acknowledged understanding of concepts and follow up plan. Specific signs and symptoms that would indicate the need for higher level of care were discussed in detail warranting prompt ER evaluation. Lisa Orourke APRN.SHERRI [facility] Instructions 08-30-2023 Patient Instructions Note Date & Type Note Facility 08-30-2023 Instructions Lisa Orourke APRN.SHERRI - 08/30/2023 6:31 PM EST Appears to be muscle strain, possible early illness, muscle ache Tylenol (generic acetaminophen) 500 mg-2 tabs every 8 hrs. as needed for fever and aches Ibuprofen 600 mg (3-200mg tablets) every 6 hours Strep is negative If continued discomfort recommend to follow up with Dr. Ribeiro. documented in this encounter [facility] History of Present illness Narrative 08-30-2023 Lisa Orourke APRN.SHERRI - 08/30/2023 6:12 PM EST Note Date & Type Note Facility 08-30-2023 History of Presen t illness Narrative Images from the original note were not included. Subjective The history is provided by the patient. No educational sign language interpreter was used. HPI Henny Brothers is a [...] have confirmed and edited as necessary, the [facility] Review of Systems Constitutional: Negative for chills [...] discomfort recommend to follow up with Dr. Ribeiro. - STREP A MOLECULAR (POC) Diagnosis and treatment plan were discussed and questions were answered to the patient's satisfaction. Pt acknowledged understanding of concepts and follow up plan. Specific signs and symptoms that would indicate the need for higher level of care were discussed in detail warranting prompt ER evaluation. Lisa Orourke APRN.SHERRI documented in this encounter [facility] Evaluation note Note Date & Type Note Facility Evaluation note Diagnosis Neck pain- Primary Cervicalgia documented in this encounter [facility] Summary Purpose Family History No Family History Records FoundNo Family History Records FoundNo Family History Records FoundNo Family History Records Found Advance Directives No Advanced Directives Records FoundNo Advanced Directives Records FoundNo Advanced Directives Records FoundNo Advanced Directives Records Found Additional Source Comments INFORMATION SOURCE (unrecogn ized section and content) DATE CREATED AUTHOR 05/08/2019 [facility] [employer] ([place]) DATE CREATED AUTHOR AUTHOR'S ORGANIZ ATION 12/20/2022 [facility] DATE CREATED AUTHOR AUTHOR'S ORGANIZ ATION 09/02/2023 [facility] DATE CREATED AUTHOR AUTHOR'S ORGANIZ ATION 12/29/2023 [facility] Source Comments (unrecognize d section and content) In the event this informatio n is protected by the Federal Confidentiality of Alcohol and Drug Abuse Patient Records regulations: The Federal rules restrict any use of the information to criminally investigate or prosecute any alcohol or drug abuse patient.[facility] the event this information is protected by the Federal Confidentiality of Alcohol and Drug Abuse Patient Records regulations: The Federal rules restrict any use of the information to criminally investigate or prosecute any alcohol or drug abuse patient.[facility] Reason for Visit (unrecogniz ed section and content) Reason Comments Throat Problem Throat feels swollen and tender-whole neck is tender x 1 day Reason Comments Patient Update Care Teams (unrecognized sec tion and content) Workers' Compensation Claims Examiner Relationship Specialty Start Date End Date Fidelia Dunn, HOUSEKEEPER SUPERVISOR.[employer]SEMBLER [employer]IP[employer] [address] [place] [phone] PCP - General Internal Medicine 01/11/19 Workers' Compensation Claims Examiner Relationship Specialty Start Date End Date Fidelia Dunn, HOUSEKEEPER SUPERVISOR.ASSEMBLER EQUIPMENT [address] [place] [phone] PCP - General Internal Medicine 01/11/19 FOR RECORDS PERTAINING TO PATIENTS WHO ARE [...] BE BASED ON THE PRIMARY CLINICAL RECORDS. [facility] [facility]. provides no warranty or guarantee of the accuracy or completeness of information in this document.
== END | disposition home or self-care (01) ==
PROVIDERS: PCP Internal Medicine; Referring Provider Urology; Visit Provider Urology
DX: N39.0 Urinary tract infection, site not specified (principal)
CPT/HCPCS: 87086; 87088

== ENCOUNTER 2024-07-17 09:25 | Day surgery (SDC) | payer OTHER, SELFPAY ==
[2024-07-17] VITALS (7 sets, daily range): BP systolic 102–144; BP diastolic 63–90; PULSE 57–76; RESP 14–16; TEMP 36.3–36.6; O2SAT 98–100; BMI 22.0
--- NOTE | 2024-07-17 09:32 | PCM.PRE.AN2 ---
ASA Classification* ASA Classification ASA Classification: 2 Assessment & Plan Anesthesia* Anesthesia Assessment Anesthesia Assessment: Discussed sedation and/or anesthesia options, risks, benefits, and alternatives with patient/parents/legal guardian/POA. Questions invited. The patient/parents/legal guardian/POA seems to understand and agrees to proceed with anesthesia plan. Reviewed the physical assessment, medical history, allergy history and patient home medications list prior to surgery/procedure/anesthetic and documented any changes. Performed airway and anesthesia risk assessments. Anesthesia Type Anesthesia Type: MAC Anesthesia Focused Assessment* Airway Assessment Mouth opens: >3 cm Mallampati Score: II Focused Labs Anesthesia Preop lab: CBC WBC 5.9 K/mm3 (4.4-11.0) 07/03/24 11:26 RBC 4.01 M/mm3 (4.2-5.4) L 07/03/24 11:26 Hgb 13.1 g/dL (12.0-15.0) 07/03/24 11:26 Hct 40.7 % (37-47) 07/03/24 11:26 Plt Count 250 K/mm3 (150-450) 07/03/24 11:26 CHEMISTRY Potassium 3.9 mmol/L (3.5-5.1) 07/03/24 11:26 Sodium 139 mmol/L (136-145) 07/03/24 11:26 Magnesium 2.3 mg/dL (1.6-2.6) 07/03/24 11:26 BUN 16 mg/dL (7-18) 07/03/24 11:26 Creatinine 0.75 mg/dL (0.55-1.02) 07/03/24 11:26 Glucose 101 mg/dL (74-106) 07/03/24 11:26 TSH 2.320 uIU/mL (0.358-3.740) 07/03/24 11:26 COAG Pre-Assessment Diagnosis/Proposed Procedure Planned Operative Procedure(s): Cystoscopy, injection Bulkamid Anesthesia History Anesthesia History - tele marketing executive: Anesthesia History - tele marketing executive Hx Hospitalization No 07/10/24 15:09 Any Problems With Anesthesia No 07/10/24 15:09 Cholinesterase deficiency No 07/10/24 15:09 You/Your Family Experience No 07/10/24 15:09 fever (hyperthermia) with Relationship Recent Exposure to Contagious No 08/17/23 08:37 Disease Does patient have nerve No 07/10/24 15:09 stimulator Patient instructed to have device shut off --Does patient have Pacemaker or ICD? When Was Last Pacemaker Check QUESTION #4 FULL TEXT: You/Your Family Experience fever (hyperthermia) with Anesthesia Last Oral Intake Last Oral intake: Last Oral Intake NPO since Meds taken in AM with sips of water? Meds patient instructed to take am of surgery PONV PONV - tele marketing executive: PONV - tele marketing executive Female Yes 07/10/24 15:09 HX of Motion Sickness No 07/10/24 15:09 HX of N/V After Surgery No 07/10/24 15:09 Non-Smoker Yes 07/10/24 15:09 Duration of Surgery greater No 07/10/24 15:09 than 60 minutes Number of Risk Factors 2 07/10/24 15:09 PONV Score Moderate Risk 07/10/24 15:09 Height & Weight Height & Weight: Anesthesia: Height & Weight Height 5 ft 5 in 07/03/24 10:28 Respiratory Assessment Respiratory Assessment - tele marketing executive: Respiratory Tract Infection Hx - tele marketing executive Hx Respiratory Tract Infection No 07/10/24 15:09 STOP Sleep Apnea STOP Sleep Apnea - tele marketing executive: STOP Sleep Apnea - tele marketing executive Hx Hypertension No 07/10/24 15:09 Hx Sleep Apnea No 07/10/24 15:09 CPAP BIPAP Do you snore loudly (louder No 07/10/24 15:09 than talking or can be heard Do you often feel tired/ No 07/10/24 15:09 fatigued/ sleepy during daytime? Has anyone observed you stop No 07/10/24 15:09 breathing during sleep? STOP Results Negative 07/10/24 15:09 QUESTION #5 FULL TEXT : Do you snore loudly (louder than talking or can be heard through closed doors)? Tobacco Use History Tobacco Use History - tele marketing executive: Tobacco Use History - tele marketing executive Tobacco Use Smoking Status Never smoker 07/10/24 15:09 Hx Tobacco Use No 07/10/24 15:09 Years Smoking Packs Smoked per Day Smoking Cessation Date was within the last 15 years Hx Smoking Cessation Date Hx Smoking Cessation Counseling Hematologic Medial History Hematologic Hx - tele marketing executive: Hematologic Medical Hx - oxide furnace tender Hx of Blood Transfusion No 07/10/24 15:09 Hx of Transfusion in last 3 No 07/10/24 15:09 Months Date of Last Transfusion (if within last 3 months) Ever experience any problems No 07/10/24 15:09 with transfusion(s)? Specify any problems Hx of Preganancy in last 3 N/A 07/10/24 15:09 Months Nurse Filling Out Transfusion NBUCHER 07/10/24 15:09 & Questions: Date: 07/10/24 07/10/24 15:09 Time: 15:12 07/10/24 15:09 Patient unable to answer at this time (ie. confused, unrespo /Reproduction History /Reproductive History - tele marketing executive: /Reproductive Hx- tele marketing executive Hx Now Gestational Age (in weeks): EDC: Hx Hx Para Hx Section SAB Active Medications Active Medications: Current Medications Generic Name Dose Route Start Last Admin Trade Name Freq PRN Reason Stop Dose Admin Cefazolin Sodium 2 gm/ N/A 20 mls @ 400 mls/hr 07/17/24 11:05 IV 07/17/24 11:07 PREOP ONE PFSH Medical History History of echocardiogram History of Holter monitoring Abnormal CBC Elevated blood pressure reading without diagnosis of hypertension Localized swelling of right foot Screening for cardiovascular condition Abnormal findings on esophagogastroduodenoscopy (EGD) Cancer History of steroid therapy Vitamin D insufficiency Osteopenia with high risk of fracture Post-menopausal Health care maintenance Encounter for vitamin deficiency screening Macrocytosis Nausea Barretts esophagus Wears glasses Post-menopausal Anxiety Alcohol use Arthritis Anemia Gastric reflux Non-smoker Leg cramps History of stress test Cardiology follow-up encounter History of irregular heartbeat Bloating Macrocytic anemia Hypokalemia Skin cancer Osteoarthritis GERD (gastroesophageal reflux disease) Allergies Home Medications ?Medication ?Instructions ?Recorded ?Last Taken ?Type melatonin 5 mg capsule 5 mg PO QHS PRN 09/07/22 Unknown History ibandronate 150 mg tablet 150 mg PO QMONTH #7 tabs 07/04/23 Unknown Rx cholecalciferol (vitamin D3) 50 50 mcg PO BID 08/02/23 Unknown History mcg (2,000 unit) tablet (Vitamin D3) potassium chloride 20 mEq See Rx Instructions .Route 03/05/24 Unknown Rx tablet,extended release(part/cryst) .COMPLEX #180 tabs buspirone 10 mg tablet 20 mg PO BID 05/05/24 Unknown History pantoprazole 40 mg tablet,delayed 40 mg PO BID #180 TABLETS 06/27/24 Unknown Rx release bio cleanse 2 cap PO DAILY 07/03/24 Unknown History biotin 5,000 mcg chewable tablet 5,000 mcg PO DAILY 07/10/24 Unknown History magnesium 200 mg tablet 400 mg PO DAILY 07/10/24 Unknown History mecobalamin (vitamin B12) 1,000 1,000 mcg PO DAILY 07/10/24 Unknown History mcg chewable tablet omega 3 350 mg-dha 235 mg-epa 90 1 cap PO DAILY 07/10/24 Unknown History mg-fish oil 597 mg capsule,delay rel (Hoffmeister-3) Allergy/AdvReac Type Severity Reaction Status Date / Time No Known Allergies Allergy Verified 07/10/24 15:04 Family History Father A-fib Hypertension Mother Thyroid disorder Hypertension Lung cancer Grandmother Colon cancer Grandfather Lung cancer Uncle Lung cancer Uncle Diabetes Surgical History Hx of colonoscopy Status post osteotomy Hx of LASIK History of nasal septoplasty Hx of tenosynovitis History of foot surgery History of Mohs micrographic surgery for skin cancer History of hand surgery Social History household members: spouse number of children: 0 current occupational status: employed current occupation: [employer], self employed history of recent travel: Yes sexually active: Yes Smoking Status: Never smoker alcohol intake: current alcohol intake frequency: a few times a week Alcohol type: wine substance use type: does not use what type of physical activity do you participate in: walking frequency: 3-4 times per week seatbelt use: always do you feel safe at home: Yes additional social history: - Karthik Review of Systems (Anesthesia) ROS Narrative System reviewed and no additional complaints, except as documented.
--- OUTSIDE RECORDS SUMMARY | 2024-07-17 10:26 | XMS RPT_ITS | CCD ---
Author Organization [facility] Care Team Providers Care Biomedical Field Service Engineer Name Role Phone CAROLYNE RIBEIRO MD Admitting [...] Nitrofurantoin; Translations: [NITROFURANTOIN] Drug Allergy 06-18-2019 Rash [facility] Work Phone: Medications Completed/Discontinued Medications Medication Drug Class(es) Dates Sig (Normalized) Sig (Original) Ascorbic Acid (2 sources) Vitamin C take 1 tablet by mouth once daily ascorbic acid (VITAMIN C ORAL) Take 1 tablet by mouth once daily. 0 Active Comment on above: Take 1 tablet by [facility] once daily. B Complex Vitamins capsule (2 sources) take 1 capsule by mouth once daily B Complex Vitamins capsule Take 1 capsule by mouth once daily. 0 Active Comment on above: Take 1 capsule by mo [facility] once daily. busPIRone hydrochloride 10 mg oral tablet (2 sources) Start: 08-10-2023 take 2 tablets by mouth every twelve hours busPIRone (BUSPAR) 10 mg tablet Take 2 tablets by mouth every 12 hours. 0 08/10/2023 Active Comment on above: Take 2 tablets by mo [facility] every 12 hours. Calcium Carbonate [...] on above: Take 2 tablets by mo hih every afternoon. Problems Problem Classification Problem Date Documented Da te Episodic/Chronic Spondylosis; intervertebral disc disorders; other back problems (1 source) Neck pain; Translations: [Cervicalgia] 08-30-2023 Episodic Results Test Name Value Interpretation Reference Range Keerthi maryellen Madi 12-28-2023 [facility] Telephone (AGGENS4) HENNY BROTHERS ([id number]) 1960 F Date Time Provider Department 12/28/23 [...] by BRISEIDA DE LA GARZA on 12/28/23 [facility] 08-30-2023 [facility] Office Visit (UCWSTR ) HENNY BROTHERS ([id number]) 1960 F Date Time Provider Department 08/30/23 6:00 PM LISA OROURKE [facility] During your visit today, we recorded the following information about you: Temperature Pulse Respiration Blood pressure 97.7 degrees 69/minute 18/minute 136/82 Weight 58 kg Lisa Orourke APRN.CNP 08/30/2023 6:37 PM Signed Subjective The history is provided by the patient. No hourly sign language interpreter was used. HPI Henny [...] have confirmed and edited as necessary, the [facility] Review of Systems Constitutional: Negative for chills [...] Date Reviewed: 08/30/2023 Reviewed by: Lisa Orourke APRN.DIGITAL X RAY SERVICE ENGINEER - Fully Assessed Reason for Visit: Throat Problem [109] Cmt: Throat feels swollen and tender-whole neck is tender x 1 day Primary Visit Diagnosis:Neck pain [M54.2] Order(s):STREP A MOLECULAR (POC) [[id number]] Order #: [id number]. #:[id number] Prescriptions as of 08/30/2023 - busPIRone (BUSPAR) [...] 1 t (more content not included)... Normal [facility] STREP A MOLECULAR (POC)on Procedural Control Valid [facility] Strep A (POCT) Negative Negative [facility] CV ECHO COMPLETEon CV ECHO COMPLETE [place] [address] Patient: HENNY BROTHERS Phone#: : 1960 Age: 62 Gender: F Pt. Type: Out Account: [id number] Location: 052 Ordering: CHARLOTTE MONTERO Exam Date: 12/18/202211:19 Family Phys: CAROLYNE Marquez MIMI Charge Code: 754177 Physician: Avery Order #: [id number] Dose#: PROCEDURE: ECHOCARDIOGRAM WITH DOPPLER AND COLOR FLOW HISTORY: Patient is a 62-year-old female with history of palpitation INDICATIONS: palpitations COMPARISON: None. TECHNIQUE: A 2-D ultrasound, color spectral Doppler and M-mode evaluation of the heart and great vessels. PATIENT MEASUREMENTS: Height (in.): 66 BSA: 1.7 Weight (lbs.): 128 BP: 128/80 Zinc Chloride Operator: PHILLIP M MODE 2D MEASUREMENTS AND CALCULATIONS: [...] 62 Gender: F Pt. Type: Out Account: [id number] Location: 052 Ordering: CHARLOTTE TOTHMolly Exam Date: 12/18/2022/11:19 Family Phys: ILDAKERVINGUY RIBEIRO Charge Code: [id number] Physician: Avery Order #: [id number] Dose#: AORTIC Ao V2 max: 1.40 m/s [...] 62 Gender: F Pt. Type: Out Account: [id number] Location: 052 Ordering: CHARLOTTE MONTERO Exam Date: 12/18/2022/11:19 Family Phys: CAROLYNE RIBEIRO Charge Code: [id number] Physician: Avery Order #: [id number] Dose#: CONCLUSION: 1. Left ventricle is normal [...] MONTERO MD on 12/18/2022 at 12:33 Normal [facility] TSHon 12-18-2022 TSH Qn 1.86 m[IU]/L Normal 0.35 - 3.74 [facility] Comment on above: Performed By: #### 2 [id number] #### [facility],[address] [place] [address] 3D MAMM BILAT SCREENon 07-31 3D MAMM BILAT SCREEN [place] [address] Patient: HENNY BROTHERS Phone#: : 1960 Age: 62 Gender: F Pt. Type: Out Account: [id number] Location: 052 Ordering: MIMI BARFIELD Exam Date: 07/31/2022/16:17 Family Phys: Charge Code: 857126 Physician: Avery Order #: [id number] Dose#: PROCEDURE: BILATERAL SCREENING BREAST TOMOSYNTHESIS MAMMOGRAM WITH CAD COMPARISON: [facility], BILAT SCREENING, 12/09/2018, 8:05. [facility], 3D BILAT SCREEN, 02/22/2021, 15:02. INDICATIONS: screening [...] Whitley Freitas MD on 07/31/2022 at 18:08 [facility] Final Surgical Pathology Rep cezar 04-24-2019 Final Surgical Pathology Report . Pathology Reports Accession: Collected Date/Time: Received Date/Time: Pathologist: [id number] 04/22/2019 08:39 EDT 04/23/2019 08:39 EDT ROXANA [...] in one cassette. Dictated by Pamela CHAN ([facility] MICROSCOPIC DESCRIPTION: Slides reviewed. Electronically Signed by Pathology Report verified by [facility] Electronically signed by ROXANA ADAMS Sign out Date: 04/24/2019 16:05 Performing Lab: [facility], [address] [place] [address] ([place]) Comment on above: Performed By: #### S PFR #### [place] [address] Psychiatry Physician Cytology Reporton 2018 Psychiatry Physician Cytology Report . Pathology Reports Accession: Collected Date/Time: Received Date/Time: Pathologist: [id number] 10/14/2018 08:54 EST 10/14/2018 18:00 EST Psychiatry Physician Cytology Report SPECIMEN: Specimen Description: Liquid Prep Reflex ASCUS Specimen: Cervical Screening or Diagnostic: Screening RELEVANT HISTORY: LMP: not given [id number] SPECIMEN ADEQUACY: SATISFACTORY FOR EVALUATION ENDOCERVICAL/TRANSFORM ATIONAL ZONE COMPONENT ABSENT/INSUFFICIENT INTERPRETATION/RESULTS : NEGATIVE FOR INTRAEPITHELIAL LESION OR MALIGNANCY Electronically Signed by Pathology report verified by [facility] Screened by: [place] Electronically signed by Hiwot LIN (ASCP) Sign-Out Date: 10/21/2018 12:57 Performing Lab: [address] Disclaimer The Pap test is a screening test for cervical cancer. As evidenced by published data, it is subject to both inherent false negative and false positive results. Your patient's results should be interpreted in context with pertinent clinical history including gynecological examination. Normal [facility] ([place]) Comment on above: Performed By: #### G YCR #### [place] [address] Psychiatry Physician Cytology Reporton 2018 Psychiatry Physician Cytology Report . Pathology Reports Accession: Collected Date/Time: Received Date/Time: Pathologist: [id number] 10/04/2018 15:48 EST 10/04/2018 18:00 ROXANA GONZALEZ MD Psychiatry Physician Cytology Report SPECIMEN: Specimen Description: Liquid Prep w/ HPV Specimen: Cervical Screening or Diagnostic: Screening RELEVANT HISTORY: LMP: 09/17/2006 [id number] SPECIMEN ADEQUACY: Specimen processed and examined, but unsatisfactory for evaluation of epithelial abnormality because of Scant Cellularity. INTERPRETATION/RESULTS : UNSATISFACTORY SPECIMEN. ADJUNCTIVE TESTING: COMMENT: HPV TESTING CANCELLED DUE TO UNSATISFACTORY SPECIMEN, SCANT CELLULARITY. Electronically Signed by Pathology report verified by [facility] Screened by: CHICO GORMAN Electronically signed by ROXANA ADAMS Sign-Out Date: 10/10/2018 13:13 Performing Lab: [address] Disclaimer The Pap test is a screening test for cervical cancer. As evidenced by published data, it is subject to both inherent false negative and false positive results. Your patient's results should be interpreted in context with pertinent clinical history including gynecological examination. Normal [facility] ([place]) Comment on above: Performed By: #### G YCR #### [facility] [address] [place] [address] Vital Signs Date Time Vital Sign Value Performing Clinician [facility] 08-30-2023 18:06-0500 Body temperature 97.7 [degF] Lisa Sharad BRIM SETTER.DIGITAL X RAY SERVICE ENGINEER Work Phone: [facility] 08-30-2023 18:06-0500 Body weight 57.97 kg Lisa Sharad BRIM SETTER.DIGITAL X RAY SERVICE ENGINEER Work Phone: [facility] 08-30-2023 18:06-0500 Diastolic blood pressure 82 mm[Hg] Lisa Sharad BRIM SETTER.DIGITAL X RAY SERVICE ENGINEER Work Phone: [facility] 08-30-2023 18:06-0500 Heart rate 69 /min Lisa Sharad BRIM SETTER.DIGITAL X RAY SERVICE ENGINEER Work Phone: [facility] 08-30-2023 18:06-0500 Respiratory rate 18 /min Lisa Sharad BRIM SETTER.DIGITAL X RAY SERVICE ENGINEER Work Phone: [facility] 08-30-2023 18:06-0500 SaO2% (BldA) [Mass fraction] 99 % Lisa Sharad BRIM SETTER.DIGITAL X RAY SERVICE ENGINEER Work Phone: [facility] 08-30-2023 18:06-0500 Systolic blood pressure 136 mm[Hg] Lisa Sharad BRIM SETTER.DIGITAL X RAY SERVICE ENGINEER Work Phone: [facility] Encounters Encounter Date Encounter Type Care Provider Facility Start: 12-28-2023 Telephone encounter [facility] Provider [facility] Comment on above: Patient Update Start: 08-30-2023 End: 08-30-2023 ambulatory FIDELIA DUNN Facility:[facility] Start: 08-30-2023 End: 08-30-2023 Patient encounter procedure Lisa Sharad BRIM SETTER.DIGITAL X RAY SERVICE ENGINEER Work Phone: [facility] Comment on above: Neck pain (Primary D x) Start: 12-18-2022 End: 12-18-2022 ambulatory CAROLYNE Angeles [facility] Start: 07-31-2022 End: 07-31-2022 ambulatory CAROLYNE Angeles [facility] Procedures Date Procedure Procedure Detail Performing Clinician Start: 08-30-2023 STREP A MOLECULAR (POC) Lisa Orourke APRN.CNP Work Phone: Plan of Treatment Date Care Activity Detail Author Start: 05-18-2024 Influenza vaccination Influenz a Vaccine (Season Ended) [facility] Start: 09-17-2023 Behavioral Health Screening Behavioral Health Screening [facility] Start: 05-18-2023 Covid-19 Vaccine ( season) Covid-19 Vaccine ( season) [facility] Start: 05-18-2023 Influenza vaccination Influenza Vacc ine (#1) [facility] Start: 09-17-2022 Depression Assessment Depression Ass essment [facility] Start: 2022 RSV Vaccine (1 - 1-d ose 60+ series) RSV Vaccine (1 - 1-dose 60+ series) [facility] Start: 12-28-2020 Urine microalbumin profile DTa P,Tdap,Td Vaccine (2 - Td or Tdap) [facility] Start: 2012 Shingrix Vaccine (1 of 2) Kong grix Vaccine (1 of 2) [facility] Start: 2007 Diabetes Screening Diabetes Screenin g [facility] Start: 2007 Lipid panel Lipid Screening [facility] Start: 2007 Screening for malign ant neoplasm of colon [facility] Start: 2002 Screening for malign ant neoplasm of breast Mammogram Screening [facility] Start: 1992 Screening for malign ant neoplasm of cervix HPV Testing [facility] Start: 1983 Screening for malign ant neoplasm of cervix Pap Testing [facility] Start: 1980 Hepatitis C screening Hepatitis C Sc reening [facility] Start: 1980 HIV screening HIV Screening [facility] Start: 01-15-1963 Covid-19 Vaccine (#1) Covid-19 Vacci ne (#1) [facility] Immunizations Immunization Date Immunization Notes Care Provider Fa paul 07-20-2014 influenza virus vacc ine, unspecified formulation Lisa Orourke APRN.CNP Work Phone: [facility] Payers Date Payer Category Payer Unknown [employer] PPO [id number] 2018-Present [phone] [address] [place] [address] PPO [id number] 2018 Unknown [id number] 1960 Unknown [id number] 1960 Unknown [id number] Unknown [id number] Social History Date Type Detail Facility Start: [facility]-30-2023 [facility] Start: 08-30-2023 Tobacco use and exposure Smoke less tobacco non-user [facility] Start: 08-26-2020 End: 08-30-2023 History of Social function [facility] Start: 08-26-2020 End: 08-30-2023 Tobacco use panel [facility] National Score (1-10 0), lower number is lower risk Not on file [facility] Start: 1960 Sex Assigned At Not on file [facility] Note 12-28-2023 Telephone Encounter - [...] no appetite, constipation documented in this encounter [facility] Progress note 08-30-2023 Note Date & Type Note Facility 08-30-2023 Note HNO ID: [id number] Author: Lisa Orourke APRN.DIGITAL X RAY SERVICE ENGINEER Service: ? Author Type: Nurse Practitioner Type: Progress Notes Filed: 08/30/2023 6:37 PM Note Text: Subjective The history is provided by the patient. No hourly sign language interpreter was used. HPI Henny [...] have confirmed and edited as necessary, the [facility] Review of Systems Constitutional: Negative for chills [...] warranting prompt ER evaluation. Lisa Orourke APRN.SHERRI [facility] Instructions 08-30-2023 Patient Instructions Note Date [...] with Dr. Ribeiro. documented in this encounter [facility] History of Present illness Narrative 08-30-2023 Lisa Orourke APRN.SHERRI - 08/30/2023 6:12 PM EST Note Date & Type Note Facility 08-30-2023 History of Presen t illness Narrative Images from the original note were not included. Subjective The history is provided by the patient. No hourly sign language interpreter was used. HPI Henny [...] have confirmed and edited as necessary, the [facility] Review of Systems Constitutional: Negative for chills [...] Lisa Orourke APRN.SHERRI documented in this encounter [facility] Evaluation note Note Date & Type Note Facility Evaluation note Diagnosis Neck pain- Primary Cervicalgia documented in this encounter [facility] Summary Purpose Family History No Family History Records FoundNo Family History Records FoundNo Family History Records FoundNo Family History Records Found Advance Directives No Advanced Directives Records FoundNo Advanced Directives Records FoundNo Advanced Directives Records FoundNo Advanced Directives Records Found Additional Source Comments INFORMATION SOURCE (unrecogn ized section and content) DATE CREATED AUTHOR 05/08/2019 [facility] DATE CREATED AUTHOR AUTHOR'S ORGANIZ ATION 12/20/2022 [facility] DATE CREATED AUTHOR AUTHOR'S ORGANIZ ATION 09/02/2023 [facility] DATE CREATED AUTHOR AUTHOR'S ORGANIZ ATION 12/29/2023 [facility] Source Comments (unrecognize d section and content) In the event this informatio n is protected by the Federal Confidentiality of Alcohol and Drug Abuse Patient Records regulations: The Federal rules restrict any use of the information to criminally investigate or prosecute any alcohol or drug abuse patient.[facility] the event this information is protected by the Federal Confidentiality of Alcohol and Drug Abuse Patient Records regulations: The Federal rules restrict any use of the information to criminally investigate or prosecute any alcohol or drug abuse patient.[facility] Reason for Visit (unrecogniz ed section and content) Reason Comments Throat Problem Throat feels swollen and tender-whole neck is tender x 1 day Reason Comments Patient Update Care Teams (unrecognized sec tion and content) Biomedical Field Service Engineer Relationship Specialty Start Date End Date Fidelia Dunn, BRIM SETTER.DIGITAL X RAY SERVICE ENGINEER [address] [place] [id number] PCP - General Internal Medicine 01/11/19 Biomedical Field Service Engineer Relationship Specialty Start Date End Date Fidelia Dunn, BRIM SETTER.DIGITAL X RAY SERVICE ENGINEER [address] [place] [phone] PCP - General Internal Medicine 01/11/19 FOR [...] BE BASED ON THE PRIMARY CLINICAL RECORDS. [facility] [employer] [facility]. provides no warranty or guarantee of the accuracy or completeness of information in this document.
--- NOTE | 2024-07-17 11:10 | EX.PCM.DISCH ---
Discharge Instructions Diet Discharge Diet: No restrictions Activity Additional Activity Instructions:: rest and take it easy for the next 2 days Dressing / Incision Call your doctor if you observe: Fever of 101 or Higher, Inability to urinate and Inability to have a bowel movement Follow Up Care Please Follow Up With: Denisse Shaikh MD When: the office will call her to make an appointment for next week. Test Results: Test results from this visit will be discussed in further detail at your follow-up appointment, if applicable. Discharge Plan Admission Attending Provider: Denisse Shaikh Primary Care Provider: Miri Ribeiro Instructions Print Language: Icelandic Discharge Orders/Prescriptions Prescriptions: New cephalexin 500 mg capsule 500 mg PO Q12 3 Days Qty: 6 0RF Continued melatonin 5 mg capsule 5 mg PO QHS PRN buspirone 10 mg tablet 20 mg PO BID bio cleanse 2 cap PO DAILY Rx Instructions: po qd 2 caps cholecalciferol (vitamin D3) [Vitamin D3] 50 mcg (2,000 unit) tablet 50 mcg PO BID biotin 5,000 mcg tablet,chewable 5,000 mcg PO DAILY magnesium 200 mg tablet 400 mg PO DAILY Thornton-3 350 mg-235 mg- 90 mg-597 mg capsule,delayed release(DR/EC) 1 cap PO DAILY mecobalamin (vitamin B12) 1,000 mcg tablet,chewable 1,000 mcg PO DAILY ibandronate 150 mg tablet 150 mg PO QMONTH Qty: 7 2RF potassium chloride 20 mEq tablet,ER particles/crystals See Rx Instructions .ROUTE .COMPLEX Qty: 180 2RF Dose Instruction: TAKE TWO TABLETS BY MOUTH EVERY DAY Rx Instructions: TAKE TWO TABLETS BY MOUTH EVERY DAY pantoprazole 40 mg tablet,delayed release (DR/EC) 40 mg PO BID Qty: 180 1RF Referrals / Follow Up: Miri Ribeiro MD [Primary Care Provider] - Disposition Disposition (needs filled in before D/C Order can be placed): Home, Self Care
--- NOTE | 2024-07-17 11:14 | OP.PCM_ITS ---
Operative Report (Standard) Operative Information Surgery/Procedure Performed: Cystoscopy with Bulkamid injection Surgeon: Denisse Shaikh Date of Procedure: 07/17/24 Pre-Operative Diagnosis: Intrinsic sphincter deficiency, stress urinary incontinence Post-Operative Diagnosis: Same Select all DRAINS/GRAFTS/IMPLANTS that apply: None (Bulkamid injection) Type of Anesthesia: MAC Estimated Blood Loss: minimal Specimen collected: No Last Waxer shampooer: No Complications Complications: No Admit VTE Documentation VTE Present on Admission: Yes VTE Mechan Device Prophylaxis: SCD's VTE Pharm Prophylaxis ordered?: No Reason prophylaxis not ordered: Treatment Not Indicated
--- NOTE | 2024-07-17 11:14 | PCM.OPRPT ---
Operative Report (Standard) Operative Information Surgery/Procedure Performed: Cystoscopy with Bulkamid injection Surgeon: Denisse Shaikh Date of Procedure: 07/17/24 Procedure Start Time: : Procedure Stop Time: : Pre-Operative Diagnosis: Intrinsic sphincter deficiency, stress urinary incontinence Post-Operative Diagnosis: Same Select all DRAINS/GRAFTS/IMPLANTS that apply: None (Bulkamid injection) Type of Anesthesia: MAC Estimated Blood Loss: minimal Specimen collected: No Description of surgery: The patient is a 63-year-old female diagnosed with intrinsic sphincter deficiency and stress urinary incontinence based on history, exam and urodynamics testing. She now presents for intervention with Bulkamid injection. Informed consent was obtained. She was taken to the operating room and placed on the operating room table. Anesthesia monitored the head, neck, airway, IV access and vital signs throughout the case. Once anesthesia was appropriately ministered, she was placed into dorsolithotomy position was prepped and draped in usual sterile fashion. Her bladder was emptied with a red rubber catheter. Using the Bulkamid cystoscope and sheath, the apparatus was inserted through the urethra under direct visualization to the bladder neck. The needle was advanced to 2 cm and the whole apparatus was retracted 2 cm. Then needle bevel side medial was then used to inject one half of a syringe full of Bulkamid submucosally at the 7 o'clock position. This process was then repeated at the 5:00, 1:00 and 11:00 positions. The urethra appeared to be well coapted at the end of the procedure. The cystoscope was removed and she was awakened and taken to the recovery room in good condition. There were no complications during the procedure. Surgical Findings: Good coaptation at the bladder neck at the conclusion of injection. Shellfish Weigher sports medicine specialist: No Complications Complications: No Admit VTE Documentation VTE Present on Admission: Yes VTE Mechan Device Prophylaxis: SCD's VTE Pharm Prophylaxis ordered?: No Reason prophylaxis not ordered: Treatment Not Indicated
[2024-07-17] MEDS: Cefazolin 2 GM in Syringe IV (11:26)
--- NOTE | 2024-07-17 11:45 | PCM.POST.ANE ---
Anesthesia: Postop Eval I Current Vital Signs Temperature: 97.9 F Pulse Rate: 72 Blood Pressure: 116/67 Respiratory Rate: 16 Pulse Ox: 98 Assessment Airway patent: Yes Spontaneous unlabored respirations: Yes nausea: No Vomiting: No Anesthesia Complication: No Fluid Hydration Crystalloid volume administer (ml): 100 Total IV fluid infused: 100 Progress Note Anesthesia document: Postop Eval 1 completed: Yes
--- NOTE | 2024-07-17 11:46 | PCM.POSTANE2 ---
Anesthesia Postop Eval I Sum Postop Eval Completion status Anesthesia document: Postop Eval 1 completed: Yes Anesthesia Postop Eval I Summary Anesthesia Postop Eval I Summary: Anesthesia Postop Eval I: Assessment Summary Airway patent Yes 07/17/24 11:46 Spontaneous unlabored Yes 07/17/24 11:46 respirations Mental status nausea No 07/17/24 11:46 Vomiting No 07/17/24 11:46 Anesthesia Postop Eval I: Fluid Summary Crystalloid volume administer 100 07/17/24 11:46 (ml) Colloids volume administered ( ml) Blood Product volume administered (ml) Total IV fluid infused 100 07/17/24 11:46 Anesthesia Postop Eval I: Summary Notes Anesthesia Complication No 07/17/24 11:46 Anesthesia Complication Comment: Post-operative progress note Anesthesia: Postop Eval II Evaluation Mental status: Awake Pain Level: 0 nausea: No Vomiting: No
--- NOTE | 2024-07-17 12:01 | PCM.POSTANE2 ---
Anesthesia Postop Eval I Sum Postop Eval Completion status Anesthesia document: Postop Eval 1 completed: Yes Anesthesia Postop Eval I Summary Anesthesia Postop Eval I Summary: Anesthesia Postop Eval I: Assessment Summary Airway patent Yes 07/17/24 11:46 Spontaneous unlabored Yes 07/17/24 11:46 respirations Mental status Awake 07/17/24 11:46 nausea No 07/17/24 11:46 Vomiting No 07/17/24 11:46 Anesthesia Postop Eval I: Fluid Summary Crystalloid volume administer 100 07/17/24 11:46 (ml) Colloids volume administered ( ml) Blood Product volume administered (ml) Total IV fluid infused 100 07/17/24 11:46 Anesthesia Postop Eval I: Summary Notes Anesthesia Complication No 07/17/24 11:46 Anesthesia Complication Comment: Post-operative progress note Anesthesia: Postop Eval II Evaluation Mental status: Awake Pain Level: 0 nausea: No Vomiting: No
== END 2024-07-17 13:40 | disposition home or self-care (01) ==
LOC: SDC 09:26 → AC 09:27
PROVIDERS: PCP Internal Medicine; Referring Provider Urology; Visit Provider Urology
PROC: 3E0K8GC Introduction of Other Therapeutic Substance into Genitourinary Tract, Via Natural or Artificial Opening Endoscopic (ICD-10-PCS; CPT 52287; principal; 2024-07-17 10:55)
DX: N36.42 Intrinsic sphincter deficiency (ISD) (principal); N39.3 Stress incontinence (female) (male); F41.9 Anxiety disorder, unspecified; K21.9 Gastro-esophageal reflux disease without esophagitis; Z79.899 Other long term (current) drug therapy
CPT/HCPCS: 51715; 00910; A4216

== ENCOUNTER 2024-08-05 13:26 | Day surgery (SDC) | payer OTHER, SELFPAY ==
[2024-08-05] VITALS (8 sets, daily range): BP systolic 104–140; BP diastolic 78–85; PULSE 64–77; RESP 16; TEMP 35.8–36.3; O2SAT 97–100; BMI 22.4
--- NOTE | 2024-08-05 14:28 | PCM.PRE.AN2 ---
ASA Classification* ASA Classification ASA Classification: 2 Assessment & Plan Anesthesia* Anesthesia Assessment Anesthesia Assessment: Discussed sedation and/or anesthesia options, risks, benefits, and alternatives with patient/parents/legal guardian/POA. Questions invited. The patient/parents/legal guardian/POA seems to understand and agrees to proceed with anesthesia plan. Reviewed the physical assessment, medical history, allergy history and patient home medications list prior to surgery/procedure/anesthetic and documented any changes. Performed airway and anesthesia risk assessments. Anesthesia Type Anesthesia Type: MAC History Source History Obtained from:: Patient and Chart Anesthesia Focused Assessment* Temperature: 96.5 F Pulse Rate: 67 Blood Pressure: 140/85 Respiratory Rate: 16 Pulse Ox: 100 Oxygen Delivery Method: Room Air Airway Assessment Mouth opens: >3 cm Mallampati Score: I Teeth Condition: Intact Neck Range of motion (ROM): Full ROM Focused Labs Anesthesia Preop lab: CBC WBC 5.9 K/mm3 (4.4-11.0) 07/03/24 11:26 RBC 4.01 M/mm3 (4.2-5.4) L 07/03/24 11:26 Hgb 13.1 g/dL (12.0-15.0) 07/03/24 11:26 Hct 40.7 % (37-47) 07/03/24 11:26 Plt Count 250 K/mm3 (150-450) 07/03/24 11:26 CHEMISTRY Potassium 3.9 mmol/L (3.5-5.1) 07/03/24 11:26 Sodium 139 mmol/L (136-145) 07/03/24 11:26 Magnesium 2.3 mg/dL (1.6-2.6) 07/03/24 11:26 BUN 16 mg/dL (7-18) 07/03/24 11:26 Creatinine 0.75 mg/dL (0.55-1.02) 07/03/24 11:26 Glucose 101 mg/dL (74-106) 07/03/24 11:26 TSH 2.320 uIU/mL (0.358-3.740) 07/03/24 11:26 COAG Pre-Assessment Diagnosis/Proposed Procedure Planned Operative Procedure(s): EGD Anesthesia History Anesthesia History - cocoa bean cleaner: Anesthesia History - cocoa bean cleaner Hx Hospitalization No 07/30/24 10:47 Any Problems With Anesthesia No 07/30/24 10:47 Cholinesterase deficiency No 07/30/24 10:47 You/Your Family Experience No 07/30/24 10:47 fever (hyperthermia) with Relationship Recent Exposure to Contagious No 08/05/24 13:50 Disease Does patient have nerve No 07/30/24 10:47 stimulator Patient instructed to have device shut off --Does patient have Pacemaker No 08/05/24 13:50 or ICD? When Was Last Pacemaker Check QUESTION #4 FULL TEXT: You/Your Family Experience fever (hyperthermia) with Anesthesia Last Oral Intake Last Oral intake: Last Oral Intake NPO since 10:00 08/05/24 13:50 Meds taken in AM with sips of No 08/05/24 13:50 water? Meds patient instructed to take am of surgery Any additional information?: Yes NPO since: 09:50 (Patient had water at 9:50 AM) PONV PONV - cocoa bean cleaner: PONV - cocoa bean cleaner Female Yes 07/30/24 10:47 HX of Motion Sickness No 07/30/24 10:47 HX of N/V After Surgery No 07/30/24 10:47 Non-Smoker Yes 07/30/24 10:47 Duration of Surgery greater No 07/30/24 10:47 than 60 minutes Number of Risk Factors 2 07/30/24 10:47 PONV Score Moderate Risk 07/30/24 10:47 Height & Weight Height & Weight: Anesthesia: Height & Weight Height 5 ft 5 in 08/05/24 13:50 Weight: 61 kg 08/05/24 13:50 Body Mass Index (BMI) 22.4 08/05/24 13:50 Respiratory Assessment Respiratory Assessment - cocoa bean cleaner: Respiratory Tract Infection Hx - cocoa bean cleaner Hx Respiratory Tract Infection No 07/30/24 10:47 STOP Sleep Apnea STOP Sleep Apnea - cocoa bean cleaner: STOP Sleep Apnea - cocoa bean cleaner Hx Hypertension No 07/30/24 10:47 Hx Sleep Apnea No 07/30/24 10:47 CPAP BIPAP Do you snore loudly (louder No 07/30/24 10:47 than talking or can be heard Do you often feel tired/ No 07/30/24 10:47 fatigued/ sleepy during daytime? Has anyone observed you stop No 07/30/24 10:47 breathing during sleep? STOP Results Negative 07/30/24 10:47 QUESTION #5 FULL TEXT : Do you snore loudly (louder than talking or can be heard through closed doors)? Tobacco Use History Tobacco Use History - cocoa bean cleaner: Tobacco Use History - cocoa bean cleaner Tobacco Use Smoking Status Never smoker 07/30/24 10:47 Hx Tobacco Use No 07/30/24 10:47 Years Smoking Packs Smoked per Day Smoking Cessation Date was within the last 15 years Hx Smoking Cessation Date Hx Smoking Cessation Counseling Hematologic Medial History Hematologic Hx - cocoa bean cleaner: Hematologic Medical Hx - security investigator Hx of Blood Transfusion No 07/30/24 10:47 Hx of Transfusion in last 3 No 07/30/24 10:47 Months Date of Last Transfusion (if within last 3 months) Ever experience any problems No 07/30/24 10:47 with transfusion(s)? Specify any problems Hx of Preganancy in last 3 N/A 07/30/24 10:47 Months Nurse Filling Out Transfusion NBUCHER 07/30/24 10:47 & Questions: Date: 07/30/24 07/30/24 10:47 Time: 10:47 07/30/24 10:47 Patient unable to answer at this time (ie. confused, unrespo /Reproduction History /Reproductive History - cocoa bean cleaner: /Reproductive Hx- cocoa bean cleaner Hx Now Gestational Age (in weeks): EDC: Hx Hx Para Hx Section SAB PFSH Medical History History of echocardiogram History of Holter monitoring Abnormal CBC Elevated blood pressure reading without diagnosis of hypertension Localized swelling of right foot Screening for cardiovascular condition Abnormal findings on esophagogastroduodenoscopy (EGD) Cancer History of steroid therapy Vitamin D insufficiency Osteopenia with high risk of fracture Post-menopausal Health care maintenance Encounter for vitamin deficiency screening Macrocytosis Nausea Barretts esophagus Wears glasses Post-menopausal Anxiety Alcohol use Arthritis Anemia Gastric reflux Non-smoker Leg cramps History of stress test Cardiology follow-up encounter History of irregular heartbeat Bloating Macrocytic anemia Hypokalemia Skin cancer Osteoarthritis GERD (gastroesophageal reflux disease) Allergies Home Medications ?Medication ?Instructions ?Recorded ?Last Taken ?Type melatonin 5 mg capsule 5 mg PO QHS PRN 09/07/22 08/01/24 History ibandronate 150 mg tablet 150 mg PO QMONTH #7 tabs 07/04/23 07/02/24 Rx cholecalciferol (vitamin D3) 50 50 mcg PO BID 08/02/23 08/04/24 History mcg (2,000 unit) tablet (Vitamin D3) potassium chloride 20 mEq See Rx Instructions .Route 03/05/24 08/04/24 Rx tablet,extended release(part/cryst) .COMPLEX #180 tabs pantoprazole 40 mg tablet,delayed 40 mg PO BID #180 TABLETS 06/27/24 07/31/24 Rx release bio cleanse 2 cap PO DAILY 07/03/24 08/04/24 History biotin 5,000 mcg chewable tablet 5,000 mcg PO DAILY 07/10/24 08/04/24 History magnesium 200 mg tablet 400 mg PO DAILY 07/10/24 08/04/24 History mecobalamin (vitamin B12) 1,000 1,000 mcg PO DAILY 07/10/24 08/05/24 History mcg chewable tablet omega 3 350 mg-dha 235 mg-epa 90 1 cap PO DAILY 07/10/24 Unknown History mg-fish oil 597 mg capsule,delay rel ([place]-3) buspirone 10 mg tablet 20 mg (2 x 10 mg) PO BID 3 months 08/01/24 08/05/24 Rx #360 tabs Allergy/AdvReac Type Severity Reaction Status Date / Time No Known Allergies Allergy Verified 07/30/24 10:46 Family History Father A-fib Hypertension Mother Thyroid disorder Hypertension Lung cancer Grandmother Colon cancer Grandfather Lung cancer Uncle Lung cancer Uncle Diabetes Surgical History Hx of colonoscopy Status post osteotomy Hx of LASIK History of nasal septoplasty Hx of tenosynovitis History of foot surgery History of Mohs micrographic surgery for skin cancer History of hand surgery Social History household members: spouse number of children: 0 current occupational status: employed current occupation: [employer], self employed history of recent travel: Yes sexually active: Yes Smoking Status: Never smoker alcohol intake: current alcohol intake frequency: a few times a week Alcohol type: wine substance use type: does not use what type of physical activity do you participate in: walking frequency: 3-4 times per week seatbelt use: always do you feel safe at home: Yes additional social history: - Karthik Review of Systems (Anesthesia) ROS Narrative System reviewed and no additional complaints, except as documented.
--- NOTE | 2024-08-05 14:30 | EGD_PTH ---
PATIENT: HENNY BROTHERS LOC: EN U#:[id number] AGE/SX: 64/F ROOM: RE08/05/[address]: Dr. Adalberto Penn DO : 1960 BED: DIS: 08/05/2024 SPEC #: [id number] RECD: 08/05/24 17:34 STATUS: LEONARDO LB #: [id number] AIDEE: 08/05/24 14:[address]: Adalberto Penn DEPT: SURGICAL PATHOLOGY RECD BY: Surinder Travis ENTERED: 08/06/24 09:30 SP TYPE: EGD BIOPSY CODI DR: Dr. Miri Ribeiro MD Tissues: A - Esophagus, NOS B - Duodenum, NOS Procedures: Special Stain Group I Surgery Specimen Level IV Alcian Blue/PAS (control) HEADER OPERATION: EGD PRE-OP DIAGNOSIS: Bile acid esophageal reflux, irritable bowel syndrome, Lopez's esophagus TISSUE SUBMITTED: A- Distal esophagus biopsy, B- Duodenum biopsy MICROSCOPIC DIAGNOSIS A. Distal esophagus, biopsy: Fragments of gastroesophageal mucosa with chronic inflammation. Intestinal metaplasia (goblet cell metaplasia) not identified. See comment. B. Duodenum, biopsy: Fragments of duodenal mucosa, no pathologic diagnosis. FRANCES. 08/07/2024 COMMENT A. Alcian blue/PAS stain with matched control is used in the evaluation of the specimen. MICROSCOPIC DESCRIPTION Slides are reviewed. GROSS DESCRIPTION A. Received in fixative is one container labeled with the patient's name and designated Distal esophagus biopsy. The specimen consists of multiple irregular fragments of light davalos soft tissue that in aggregate measure 0.6 x 0.6 x 0.1 cm. The specimen is totally submitted in one cassette. B. Received in fixative is one container labeled with the patient's name and designated Duodenum biopsy. The specimen consists of two irregular fragments of light davalos soft tissue that in aggregate measure 0.6 x 0.3 x 0.1 cm. The specimen is totally submitted in one cassette. FRANCES. 08/06/2024 TC:3 CPT:07867k2,74356
--- NOTE | 2024-08-05 14:48 | HP.PCM_ITS ---
History and Physical Date of Admission: 08/05/24 MARCIA BROTHERS, is a 63 F who presents to the office today for a follow up visit regarding bile gastritis due to a incompetent pyloric sphincter.?She had significant bile present in her stomach on EGD. Gastric emptying study was normal. PPI was discontinued since the diagnosis of Ramos's was in question--she had intestinal metaplasia on biopsy of esophagus, but esophagus appearance was more like bile acid reflux than like Ramos's. We had referred her to [facility] for possible ablation for Ramos's. She tried alkaline water and sodium bicarb w/o relief of bloating after eating and abdominal pain. Does best with small meals. Doesn't tolerate beef, processed tomatoes, broccoli, asparagus. If she consumes soluble fiber in the form of bran cereal, then that can help minimize the bile acid reflux. Bowels are regular on aloe vera supplement. Marcia established with this clinic 07.14.21. She was having difficulty with postprandial bloating and midepigastric discomfort for the last four years. EGD 08.08.21 finding LA Grade A non-reflux esophagitis; Ramos?s esophagus, Ki- 67 +; bile gastritis. Gastric emptying study 01.04.22 normal at 60 minutes. EGD 08.10.23 Ramos's esophagus, Ki-67+ and p53+ ROS Const Constitutional: No body ache, chills, fatigue, fever(s) or headache(s) ENT ENT: Positive for nasal congestion, post nasal drip and sore throat; No ear or mastoid pain, ear pressure, sinus pressure, sinus pain or headache(s) Resp Respiratory: Positive for cough Cough: Yes productive; No shortness of breath or wheezing Gastro GI: No diarrhea, nausea/dyspepsia or vomiting Neuro Neurology: No headache(s) Endo Endocrine: No fatigue Aller/Imm Allergy/Immunologic: No wheezing Exam Const General: cooperative, healthy appearing, comfortable, no acute distress, well developed and well groomed Nutritional Appearance: average body habitus and well nourished Orientation: alert, awake and oriented x3 HENMT Head: normocephalic and atraumatic Ears: hearing grossly normal bilaterally, external ears normal and TM's normal bilaterally Nose: external nose normal, nares normal, no nasal polyps and mucous membranes and turbinates abnormal boggy and erythematous Face and sinus: normal facial exam and sinuses nontender Throat: posterior oropharynx normal, tonsils normal, uvula midline and postnasal drainage Resp Effort & Inspection: normal respiratory effort, able to speak in complete sentences, symmetric chest movement and no cough Auscultation: Bilateral: Clear to Auscultation Cardio Rate: regular rate Rhythm: regular rhythm Heart Sounds: no murmurs Quality Reporting Tobacco Screening (CMS 138) Smoking Status: Never smoker Assessment and Plan Assessment and Plan (1) Bile acid esophageal reflux: Status: Acute Plan: 62-year-old female with bilateral gastroesophagitis due to incompetent pyloric sphincter. She minimizes bile acid reflux by consuming soluble fiber. Bowels are regular on aloe vera supplement. She has been interested in ablation for Ramos's esophagus so we referred her to [facility], however they felt she likely had changes due to bile acid reflux rather than true Ramos's esophagus; they recommended no PPI therapy, consider Alba pH study, consider gastric emptying study. We will need to reevaluate on EGD. (2) IBS (irritable bowel syndrome): Status: Chronic Qualifiers: Irritable bowel syndrome type: with both diarrhea and constipation Qualified Code(s): K58.2 - Mixed irritable bowel syndrome Plan: I think most of her symptoms are coming from bile gastritis and bile acid reflux back into the stomach due to a incompetent pyloric sphincter. She did have a lot of bile that was present in her stomach during her upper endoscopy that was seen. She has a gastric emptying study does not show any signs of delayed gastric emptying. She is experiencing some symptoms of dumping which I think is attributed to a incompetent pyloric sphincter and abnormal acid-base balance. She is going to continue warm water with sodium bicarbonate prior to meals to see if it helps the bloating that she is experiencing after eating. She wants to continue off of PPI therapy as she did have some improvement of her abdominal pain with stopping PPI therapy and vitamin supplements that she was taking on a daily basis. She will call office in approximately 2 weeks or contact us through the portal with a progress report regarding the recommendations that we made today. (3) Barretts esophagus: Status: Chronic Qualifiers: Ramos's esophagus type: without dysplasia Qualified Code(s): K22.70 - Ramos's esophagus without dysplasia Plan: She wants to hold off on PPI therapy since the diagnosis of Ramos's esophagus is in question. She will get a repeat upper endoscopy in approximately a year She needs to be on PPI therapy due to the progression of the ramos's esophagus. I have examined the patient and the H&P has been reviewed. There are no clinical changes since date of exam.
--- NOTE | 2024-08-05 15:17 | PCM.POST.ANE ---
Anesthesia: Postop Eval I Current Vital Signs Temperature: 97 F Pulse Rate: 77 Blood Pressure: 110/78 Respiratory Rate: 16 Pulse Ox: 99 Oxygen Delivery Method: Room Air Assessment Airway patent: Yes Spontaneous unlabored respirations: Yes Mental status: Awake and Calm nausea: No Vomiting: No Anesthesia Complication: No Fluid Hydration Crystalloid volume administer (ml): 30 Total IV fluid infused: 30 Progress Note Anesthesia document: Postop Eval 1 completed: Yes
--- NOTE | 2024-08-05 15:54 | OP.EGD_ITS ---
Patient Name: Marcia Cade Procedure Date: 08/05/2024 2:54 PM Date of : 1960 Age: 64 Procedure: Upper GI endoscopy Indications: Follow-up of Lopez's esophagus Providers: Adalberto Penn DO Referring MD: Miri Ribeiro MD Medicines: Monitored Anesthesia Care Patient Profile: This is a 64 year old female. Refer to note in patient chart for documentation of history and physical. Patient has symptoms of chronic epigastric abdominal pain and chronic heartburn. Her most recent EGD for Lopez's biopsy. Complications: No immediate complications. Procedure: Pre-Anesthesia Assessment: - Prior to the procedure, a History and Physical was performed, and patient medications and allergies were reviewed. The patient is competent. The risks and benefits of the procedure and the sedation options and risks were discussed with the patient. All questions were answered and informed consent was obtained. Patient identification and proposed procedure were verified by the physician in the pre-procedure area. Mental Status Examination: normal. Prophylactic Antibiotics: The patient does not require prophylactic antibiotics. Prior Anticoagulants: The patient has taken no anticoagulant or antiplatelet agents. After reviewing the risks and benefits, the patient was deemed in satisfactory condition to undergo the procedure. The anesthesia plan was to use monitored anesthesia care (MAC). Immediately prior to administration of medications, the patient was re-assessed for adequacy to receive sedatives. The heart rate, respiratory rate, oxygen saturations, blood pressure, adequacy of pulmonary ventilation, and response to care were monitored throughout the procedure. The physical status of the patient was re-assessed after the procedure. After obtaining informed consent, the endoscope was passed under direct vision. Throughout the procedure, the patient's blood pressure, pulse, and oxygen saturations were monitored continuously. The gastroscope was introduced through the mouth, and advanced to the second part of duodenum. The upper GI endoscopy was accomplished without difficulty. The patient tolerated the procedure well. Scope In: 3:04:55 PM Scope Out: 3:09:01 PM Total Procedure Duration Time 0 hours 4 minutes 6 seconds Findings: There were esophageal mucosal changes suspicious for short-segment Lopez's esophagus present in the lower third of the esophagus. The maximum longitudinal extent of these mucosal changes was 2 cm in length. Mucosa was biopsied with a cold forceps for histology in a targeted manner at intervals of 1 cm in the lower third of the esophagus. One specimen bottle was sent to pathology. Verification of patient identification for the specimen was done. Estimated blood loss was minimal. The entire examined stomach was normal. Patchy mildly erythematous mucosa without active bleeding and with no stigmata of bleeding was found in the duodenal bulb. Biopsies were taken with a cold forceps for histology. Verification of patient identification for the specimen was done. Estimated blood loss was minimal. Impression: - Esophageal mucosal changes suspicious for short-segment Lopez's esophagus. Biopsied. - Normal stomach. - Erythematous duodenopathy. Biopsied. Recommendation: - Discharge patient to home. - Resume previous diet. - Continue present medications. - Await pathology results. Procedure Code(s): --- Professional --- 29349, Esophagogastroduodenoscopy, flexible, transoral; with biopsy, single or multiple CPT copyright 2021 [employer]. All rights reserved. The codes documented in this report are preliminary and upon pe electrical engineer review may be revised to meet current compliance requirements. Adalberto Penn DO 08/05/2024 3:53:49 PM This report has been signed electronically. Number of Addenda: 0 Note Initiated On: 08/05/2024 2:54 PM
--- NOTE | 2024-08-05 15:54 | OP.CCLET_ITS ---
08/05/2024 Miri Ribeiro MD [address] [place] [address] Re : Upper GI endoscopy procedure for Marcia Cade Dear Dr. Ribeiro This procedure was performed on Monday, August 05, 2024. My impressions and recommendations are as follows: Impressions : - Esophageal mucosal changes suspicious for short-segment Lopez's esophagus. Biopsied. - Normal stomach. - Erythematous duodenopathy. Biopsied. Recommendations : - Discharge patient to home. - Resume previous diet. - Continue present medications. - Await pathology results. My findings are described in the full procedure note, which is enclosed. If I can be of further assistance, please feel free to contact me at . Sincerely, Adalberto Penn, 08/05/2024 3:53:49 PM This report has been signed electronically.
--- NOTE | 2024-08-05 17:32 | PCM.POSTANE2 ---
Anesthesia Postop Eval I Sum Postop Eval Completion status Anesthesia document: Postop Eval 1 completed: Yes Anesthesia Postop Eval I Summary Anesthesia Postop Eval I Summary: Anesthesia Postop Eval I: Assessment Summary Airway patent Yes 08/05/24 15:18 [email or web address] Spontaneous unlabored Yes 08/05/24 15:18 [email or web address] respirations Mental status Awake,Calm 08/05/24 15:18 [email or web address] nausea No 08/05/24 15:18 [email or web address] Vomiting No 08/05/24 15:18 [email or web address] Anesthesia Postop Eval I: Fluid Summary Crystalloid volume administer 30 08/05/24 15:18 [email or web address] (ml) Colloids volume administered ( ml) Blood Product volume administered (ml) Total IV fluid infused 30 08/05/24 15:18 [email or web address] Anesthesia Postop Eval I: Summary Notes Anesthesia Complication No 08/05/24 15:18 [email or web address] Anesthesia Complication Comment: Post-operative progress note Anesthesia: Postop Eval II Evaluation Mental status: Awake Pain Level: 0 nausea: No Vomiting: No
== END 2024-08-05 16:03 | disposition home or self-care (01) ==
LOC: EN 13:26 → AC 13:27
PROVIDERS: PCP Internal Medicine; Referring Provider Internal Medicine; Visit Provider Internal Medicine Gastroenterology
PROC: 0DJ08ZZ Inspection of Upper Intestinal Tract, Via Natural or Artificial Opening Endoscopic (ICD-10-PCS; CPT 43235; principal; 2024-08-05 14:25)
DX: K22.70 Barrett's esophagus without dysplasia (principal); K21.9 Gastro-esophageal reflux disease without esophagitis; K58.2 Mixed irritable bowel syndrome; K31.89 Other diseases of stomach and duodenum; Z79.899 Other long term (current) drug therapy
CPT/HCPCS: 43239; 88305; 88312; A4216; J2405

== ENCOUNTER → 2024-09-25 | Outpatient (CLI) | payer OTHER, SELFPAY ==
--- NOTE | 2024-09-25 09:48 | NM_ITS ---
CLINICAL: 64-year-old female with history of bile acid reflux. SOLID PHASE 99m Tc SULFUR COLLOID GASTRIC EMPTYING STUDY COMPARISON: Previous semisolid phase gastric emptying study dated 01/04/2022 FINDINGS: The patient was administered 1.2 mCi of 99m Tc sulfur colloid mixed with egg and consumed per os. Image acquisitions in the anterior projection were obtained for 235 minutes following meal consumption. There is prompt visualization of the stomach. There is no gastroesophageal reflux identified. First order kinetics are maintained throughout the duration of the acquisitions. The T ? raw data emptying was calculated to be 87.77 minutes, (Normal 65-110 minutes). 99.0 % emptying and 1.0 % retention are defined at 4 hours post meal ingestion. NM/Gastric Emptying Study - 4 HR IMPRESSION: 1. NORMAL 99m Tc sulfur colloid solid phase gastric emptying imaging examination. A. There is normal and preserved solid phase gastric emptying compared to normal controls with maintained first order kinetics throughout all components of the examination. (Charanjit et al, Gastroenterology 77: 75, 1979 Shashi et al, Semin Nucl Med 12: 116, 1981 Maliha et al, SNM Procedure Guidelines Adult Solid Meal Gastric Emptying Study 3.0 [email or web address]). B. Greater than 90% emptying of the initial gastric contents at 4 hours post dose is consistent with normal solid phase gastric emptying which correlates with the results of the T ? emptying calculation. (Isaías et al, J Nucl Med 48: 568, 2007). C. Overall compared to the previous gastric emptying study dated 01/04/2022, there is current demonstration of normal solid phase emptying as defined above. Electronically Signed: Philipp De Leon DO at 9:23 EST ,
== END | disposition home or self-care (01) ==
LOC: NM 09:46
PROVIDERS: PCP Internal Medicine; Referring Provider Internal Medicine Gastroenterology; Visit Provider Internal Medicine Gastroenterology
DX: K21.9 Gastro-esophageal reflux disease without esophagitis (principal)
CPT/HCPCS: 78264; A9541

== ENCOUNTER → 2024-11-20 | Outpatient (CLI) | payer OTHER, SELFPAY ==
--- NOTE | 2024-11-20 13:00 | BD_ITS ---
PROCEDURE: DEXA BONE DENSITY STUDY REASON FOR EXAM: Osteopenia, with high fracture risk. F, age 64 y/o . TECHNIQUE: DEXA scan of the lumbar spine and both hips. COMPARISON: Prior examination of 09/27/2022.. FINDINGS: T-SCORES Lumbar spine: 0.934 g per cm2 (T-score -1.1); Previously: T-score -1.8 Left hip: Left femoral neck bone mineral density 0.639 g per cm2 (T-score -1.9); Previously: T-score -2.1 Right hip: Right femoral neck bone mineral density 0.710 g per cm2 (T-score - 1.3); Previously: T-score -1.6 FRAX* Results: 10 Year Probability of Fracture: Hip Fracture(1): 1.9% Major Osteoporotic Fracture(2): 15% *FRAX is a trademark of the [employer]'s [place] for Metabolic Bone Disease, World Health Organization (WHO) Collaborating [place]. 1-The 10-year probability of fracture may be lower than reported if the patient has received treatment. 2-Major Osteoporotic Fracture: Clinical Spine, Forearm, Hip or Shoulder. The T-scores are also available for review on the [facility] PACS or by accessing the [facility] electronic medical record. BD/Dexa Bone Density Study IMPRESSION: Osteopenia. Slight interval improvement in bone mineral density compared to th e prior study of 09/27/2022. Reading Location: [id number]
== END | disposition home or self-care (01) ==
LOC: OPBD 12:49
PROVIDERS: PCP Internal Medicine; Referring Provider Internal Medicine; Visit Provider Internal Medicine
DX: Z13.820 Encounter for screening for osteoporosis (principal); M85.80 Other specified disorders of bone density and structure, unspecified site
CPT/HCPCS: 77080

== ENCOUNTER → 2024-12-18 | Outpatient (CLI) | payer OTHER, SELFPAY ==
[2024-12-18 18:05] LABS: Anion Gap 12 (5-15); BUN 21 mg/dL (4-19); BUN/Creat Ratio 25.6 RATIO (10-20); Calcium,Total 9.8 mg/dL (7.6-11.0); Carbon Dioxide 26.8 mmol/L (21.0-32.0); Chloride 102 mmol/L (98-108); Creatinine, Serum 0.82 mg/dL (0.70-1.20); EST Glomerular Filtration Rate 81 (>60); Glucose 98 mg/dL (70-99); Potassium 3.9 mmol/L (3.3-5.1); Sodium Level 140 mmol/L (133-145)
[2024-12-18 18:37] LABS: Cholesterol 238 mg/dL (<=200); High Density Lipoprotein 89 mg/dL; Low Density Lipoprotein Calc. 130 mg/dL; Triglycerides 94 mg/dL; Very Low Density Lipoprotein 19 mg/dL (5-40); cholesterol:hdl ratio screen 2.68
[2024-12-18 18:59] LABS: Vitamin D,25 Hydroxy 73.3 ng/mL (30-100)
== END | disposition home or self-care (01) ==
LOC: BIMLAB 15:33
PROVIDERS: PCP Internal Medicine; Visit Provider Internal Medicine
DX: M85.80 Other specified disorders of bone density and structure, unspecified site (principal); E87.6 Hypokalemia; Z13.6 Encounter for screening for cardiovascular disorders
CPT/HCPCS: 36415; 80048; 80061; 82306

== ENCOUNTER → 2025-06-11 | Outpatient (CLI) | payer OTHER, SELFPAY ==
[2025-06-11 13:23] LABS: Hematocrit 39.1 % (37-47); Hemoglobin 13.4 g/dL (12.0-15.0); Immature Granulocytes Count 0.020 X10^3/uL (0.0-0.0); Mean Corp Hgb Conc 34.3 g/dL (32-36); Mean Corpuscular Volume 100.0 fL (81-99); Mean Platelet Vol. 10.2 fl (6.2-12.0); NRBC Flagged by Analyzer 0 % (0-5); Platelet Count 221 K/mm3 (150-450); RBC Distribution Width CV 12.1 % (11.6-14.6); RBC Distribution Width SD 44.4 fl (35.1-43.9); Red Blood Count 3.91 M/mm3 (4.2-5.4); White Blood Count 6.4 K/mm3 (4.4-11.0)
[2025-06-11 14:03] LABS: AST(SGOT) 18 U/L (<=31); Alanine Aminotransfer ALT/SGPT 14 U/L (<=34); Albumin, Serum 4.5 g/dL (3.4-4.8); Alkaline Phosphatase 39 U/L (35-104); Anion Gap 11 (5-15); BUN 16 mg/dL (4-19); BUN/Creat Ratio 19.6 RATIO (10-20); Calcium,Total 9.5 mg/dL (7.6-11.0); Carbon Dioxide 27.3 mmol/L (21.0-32.0); Chloride 102 mmol/L (98-108); Cholesterol 230 mg/dL (<=200); Globulin 2.3 g/dL (2.2-4.2); Glucose 92 mg/dL (70-99); Low Density Lipoprotein Calc. 115 mg/dL; Potassium 4.2 mmol/L (3.3-5.1); Triglycerides 192 mg/dL; Very Low Density Lipoprotein 38 mg/dL (5-40); cholesterol:hdl ratio screen 2.99
== END | disposition home or self-care (01) ==
LOC: LAB 12:44
PROVIDERS: PCP Internal Medicine; Referring Provider Internal Medicine; Visit Provider Internal Medicine
DX: E78.5 Hyperlipidemia, unspecified (principal)
CPT/HCPCS: 36415; 80053; 80061; 85025

== ENCOUNTER → 2025-08-10 | Outpatient (CLI) | payer OTHER, SELFPAY ==
[2025-08-14 10:08] LABS: HPV APTIMA, High Risk Negative (Negative)
== END | disposition home or self-care (01) ==
LOC: LABSPEC 10:25
PROVIDERS: PCP Internal Medicine; Referring Provider Nurse Practitioner Family; Visit Provider Nurse Practitioner Family
DX: N95.1 Menopausal and female climacteric states (principal)
CPT/HCPCS: 87624; 88175; G0145

== ENCOUNTER → 2025-08-19 | Outpatient (CLI) | payer OTHER, SELFPAY ==
[2025-08-19 09:20] LABS: CORTISOL AM 17.00 ug/dL (6.02-18.40); Follicle Stimulating Hormone 65.4 mIU/mL; Vitamin D,25 Hydroxy 64.4 ng/mL (30-100)
[2025-08-21 19:07] LABS: Anti-Mullerian Hormone,Serum < 0.015 ng/mL (.)
== END | disposition home or self-care (01) ==
PROVIDERS: PCP Internal Medicine; Referring Provider Nurse Practitioner Family; Visit Provider Nurse Practitioner Family
DX: N95.1 Menopausal and female climacteric states (principal); Z13.29 Encounter for screening for other suspected endocrine disorder
CPT/HCPCS: 36415; 82306; 82533; 82670; 83001; 83516; 84443

== ENCOUNTER → 2025-08-26 | Outpatient (CLI) | payer OTHER, SELFPAY ==
[2025-08-30 15:08] LABS: HPV APTIMA, High Risk Negative (Negative)
== END | disposition home or self-care (01) ==
LOC: LABSPEC 16:26
PROVIDERS: Visit Provider Nurse Practitioner Family
DX: Z12.4 Encounter for screening for malignant neoplasm of cervix (principal)
CPT/HCPCS: 87624; 88175; G0145